=== PATIENT | female | born 1955 | race Caucasian/White ===

== ENCOUNTER → 2018-07-05 16:30 | Outpatient (CLI) | payer MEDICARE, SELFPAY ==
--- NOTE | 2018-07-05 16:31 | BI_ITS ---
MAMMOGRAPHY - BILATERAL SCREENING REASON FOR EXAM: Female, 63 years old. Routine annual screening examination. PERTINENT HISTORY: Reason for Procedure (BI) NO FAM HX NO SX TECHNIQUE: Digital bilateral breast monroe (3D mammographic acquisition) in the CC and MLO projections. 2-D mediolateral oblique (MLO) and craniocaudad (CC) views of both breasts were obtained. CAD: Full Field Digital Mammography with Computer Added Detection was performed. COMPARISON: Apr 30 2015 7:45am FINDINGS: Breast Composition: There are scattered areas of fibroglandular density. There is a cluster of microcalcification at the medial aspect of the right breast seen only on the CC view for which further evaluation by magnification views and ultrasound would be recommended. No other significant abnormalities are identified. BI/SCREENING MAMM (CAD), BILAT IMPRESSION: Further imaging evaluation recommended, as described above. (E) ASSESSMENT CATEGORY: BIRADS Category 0: Incomplete. Need additional imaging evaluation. A letter regarding these results will be sent to the patient by the facility within 30 days. Approximately 10% of breast cancers are not detected by mammography. A normal mammogram should not delay biopsy of a clinically suspicious abnormality. [id number] Electronically Signed: Renata Chen MD at 13:03 EDT Tel , Service support ,
== END ==
PROVIDERS: Family Provider Internal Medicine; PCP Internal Medicine; Referring Provider Internal Medicine; Visit Provider Internal Medicine
DX: Z12.31 Encounter for screening mammogram for malignant neoplasm of breast (principal)
CPT/HCPCS: 77063; 77067

== ENCOUNTER → 2018-07-14 08:52 | Outpatient (CLI) | payer MEDICARE, OTHER, SELFPAY ==
--- NOTE | 2018-07-14 08:54 | BI_ITS ---
MAMMOGRAPHY - UNILATERAL DIAGNOSTIC: RIGHT BREAST REASON FOR EXAM: Female, 63 years old. Abnormal right mammogram calcifications, please see prior mammogram report 07/05/2018. PERTINENT HISTORY: Non-contributory. TECHNIQUE: Digital examination. Mediolateral oblique (MLO) and craniocaudad (CC) views of the breast were obtained. CAD: CAD performed COMPARISON: 07/05/2018, 05/03/2017, 05/01/2016 and 04/30/2015. FINDINGS: Breast Composition: There are scattered areas of fibroglandular density. There are no mass densities or suspicious abnormal microcalcification cluster identified. Coarse benign-appearing calcifications are noted including likely vascular calcification which is seen on prior mammographic studies. BI/DIAG MAMM W/CAD, UNILAT IMPRESSION: Stable unilateral diagnostic right mammogram. No definite mammographic findings malignancy identified. ASSESSMENT CATEGORY: BIRADS Category 2: Benign. A letter regarding these results will be sent to the patient by the facility within 30 days. FOLLOW-UP RECOMMENDATION: Yearly follow-up mammogram recommended. (A) Negative mammographic results should not deter biopsy as a palpable lesion if present should be followed on clinical grounds and biopsy performed if clinically persistent for 3 months or increasing size. Approximately 10% of breast cancers are not detected by mammography. A normal mammogram should not delay biopsy of a clinically suspicious abnormality. Dense breast tissue mainstream neoplasm. Electronically Signed: Angel Gideon, at 16:35 EDT Tel , Service support ,
== END ==
PROVIDERS: Family Provider Internal Medicine; PCP Internal Medicine; Referring Provider Internal Medicine; Visit Provider Internal Medicine
DX: R92.8 Other abnormal and inconclusive findings on diagnostic imaging of breast (principal)
CPT/HCPCS: 77065

== ENCOUNTER 2020-10-21 07:44 | Emergency (ER) | payer OTHER, MEDICARE, SELFPAY ==
[2019-06-11 10:22] VITALS: BMI 24.3
[2020-10-21 07:45] VITALS: BP 159/77; PULSE 57; RESP 16; TEMP 36.3; O2SAT 100; BMI 26.6
--- NOTE | 2020-10-21 08:05 | CT_ITS ---
STUDY: CT BRAIN WITHOUT CONTRAST REASON FOR EXAM: Female, 65 years old. FELL ON ICE THIS AM, HIT BACK OF HEAD RADIATION DOSAGE (If Supplied By Facility): CTDIvol = ( 44.99 ) mGy, DLP = ( 779.24 ) mGycm TECHNIQUE: Transaxial CT imaging of the brain was performed without administration of intravenous contrast material. Individualized dose optimization techniques were used for this CT. COMPARISON: No relevant priors. FINDINGS: Normal soft tissue structures. Normal calvarium. Normal size ventricles and extra-axial spaces for the patient''s age. Normal white matter tracts of the cerebral hemispheres. Normal basal ganglia and thalami. Normal brainstem. Normal cerebellum. There is no intracranial hemorrhage. There are no findings of an acute ischemic infarction. Normal visualized paranasal sinuses. CT/Brain/Head without Contrast IMPRESSION: Normal unenhanced CT scan of the brain. Electronically Signed: Helio Kuhn MD at 8:51 EST , Service support ,
--- NOTE | 2020-10-21 08:06 | RAD_ITS ---
STUDY: X-RAY - RIGHT ELBOW REASON FOR EXAM: Female, 65 years old. FALL THIS AM. PAINFUL ELBOW, NO SWELLING NOTED TECHNIQUE: 3 view(s) of the elbow. COMPARISON: None. FINDINGS: Normal visualized humerus, radius and ulna. Normal radiocapitellar and ulnotrochlear articulations. The soft tissue structures are unremarkable. RAD/Elbow min 3 Views IMPRESSION: Normal x-ray examination of the elbow. Electronically Signed: Helio Kuhn MD at 8:34 EST , Service support ,
--- NOTE | 2020-10-21 09:23 | ED.VIS.FALL ---
History of Present Illness Chief Complaint: Fall Narrative: Patient presenting secondary to a fall at work. Patient slipped on the ice. Patient struck the back of her head and her right elbow. Patient is complaining of continuous pain in these areas. There is no loss of consciousness. Patient is not anticoagulated. Pain is mild. Review of systems otherwise negative. Past Medical History - Allergies and Home Meds Allergies/Adverse Reactions: Allergies No Known Allergies Allergy (Verified 10/21/20 07:46) Primary Care Physician: Lakesha Solis MD [Primary Care Provider] - Prior records reviewed: Yes Past Medical History: - - Hypothyroidism Smoking Status: Never smoker Alcohol: None Drugs: None Review of Systems All systems negative except as indicated General: Denies: Chills, Fever, Sweats Eyes: Denies: Visual changes - bilaterally, Diplopia ENT: Denies: Rhinorrhea, Sore throat Cardiovascular: Denies: Chest pain, Palpitations Respiratory: Denies: Dyspnea, Cough, Dyspnea on exertion Gastrointestinal: Denies: Abdominal pain, Nausea, Vomiting, Diarrhea, Melena, Hematochezia Genitourinary: Denies: Dysuria, Hematuria, Frequency Musculoskeletal: Reports: Extremity Pain Skin: Denies: Rash, Wounds Neurological: Reports: Headache Physical Exam Vital Signs/Narrative: Vital Signs Temp Pulse Resp BP Pulse Ox 10/21/20 07:45 97.3 F L 57 L 16 159/77 H 100 Inital Vital Signs reviewed: Yes General: Well nourished, Well developed Head: Normocephalic, Atraumatic Eyes: Perrl, EOMI ENT: TM's clear, No hemotympanum or drainage, - - Right occipital scalp hematoma no depressed skull fracture Neck: Nontender, Full ROM Cardiovascular: Regular rate, Regular rhythm, No murmurs Respiratory: No distress, CTA bilaterally, Chest nontender Abdomen: Soft, Nontender, Nondistended, Normal bowel sounds Back: Nontender Extremeties: Minimal tenderness to palpation of the right elbow normal flexion and extension pronation and supination Skin: Normal color, No rash Neurological: Alert, Oriented x3, Cranial nerves II-XII grossly intact, Normal Strength, Normal Sensation Psychological: Normal affect Diagnostic/Tx/Re-eval Clinical Impression(s) from Imaging Studies Brain CT 10/21/20 08:05 IMPRESSION: Normal unenhanced CT scan of the brain. Electronically Signed: Helio Kuhn MD at 8:51 EST , Service support , Elbow X-Ray 10/21/20 08:06 IMPRESSION: Normal x-ray examination of the elbow. Electronically Signed: Helio Kuhn MD at 8:34 EST , Service support , - Medical Decision Making Patient presented secondary to a fall. 3 view of the right elbow by my personal review as well as radiology is negative for fracture. CT imaging of the brain is negative. Patient at this point has an elbow contusion and a scalp contusion. Patient was discharged in stable condition with supportive management. ED Disposition - Plan for ED Patient: Disposition: Home or Assisted Living Diagnosis: Elbow contusion, Scalp contusion Instructions: ED Scalp Contusion Referrals: Lakesha Solis MD [Primary Care Provider] - As Needed
[2020-10-21 10:27] VITALS: PULSE 62; RESP 17; O2SAT 100
== END 2020-10-21 10:31 | disposition home or self-care (01) ==
PROVIDERS: Emergency Provider Emergency Medicine; PCP Internal Medicine
DX: S00.03XA Contusion of scalp, initial encounter (principal); S50.01XA Contusion of right elbow, initial encounter; W00.0XXA Fall on same level due to ice and snow, initial encounter; Y93.9 Activity, unspecified; Y92.9 Unspecified place or not applicable; Y99.0 Civilian activity done for income or pay; E03.9 Hypothyroidism, unspecified; Z79.899 Other long term (current) drug therapy
CPT/HCPCS: 70450; 73080; 99282

== ENCOUNTER 2020-11-04 14:56 | Emergency (ER) | payer OTHER, MEDICARE, SELFPAY ==
[2020-11-04 14:58] VITALS: BP 170/92; PULSE 67; RESP 15; TEMP 36; O2SAT 100; BMI 27.1
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
== END 2020-11-04 16:32 | disposition home or self-care (01) ==
LOC: ED 15:40
PROVIDERS: Emergency Provider Emergency Medicine; PCP Internal Medicine
DX: F07.81 Postconcussional syndrome (principal); S16.1XXA Strain of muscle, fascia and tendon at neck level, initial encounter; V47.5XXA Car driver injured in collision with fixed or stationary object in traffic accident, initial encounter; Y93.9 Activity, unspecified; Y92.9 Unspecified place or not applicable; Y99.9 Unspecified external cause status; E03.9 Hypothyroidism, unspecified; Z79.899 Other long term (current) drug therapy
CPT/HCPCS: 70450; 72125; 99282

== ENCOUNTER → 2021-07-31 16:13 | Outpatient (CLI) | payer MEDICARE, OTHER, SELFPAY ==
--- NOTE | 2021-07-31 16:16 | BI_ITS ---
MAMMOGRAPHY - BILATERAL SCREENING REASON FOR EXAM: Female, 66 years old. Routine annual screening examination. PERTINENT HISTORY: Non-contributory. TECHNIQUE: Digital bilateral breast marie (3D mammographic acquisition) in the CC and MLO projections. 2-D mediolateral oblique (MLO) and craniocaudad (CC) views of both breasts were obtained. CAD: Full Field Digital Mammography with Computer Added Detection was performed. COMPARISON: Comparison is made with prior examination dated 07/05/2015 and 04/30/2015. FINDINGS: Breast Composition: There are scattered areas of fibroglandular density. There are no dominant masses or suspicious calcifications. No other significant abnormalities are identified. There has been no significant change since the prior study. BI/SCRN MAMM (CAD)W/MARIE BILAT IMPRESSION: Stable bilateral screening mammogram. Yearly follow-up mammogram recommended. (A) ASSESSMENT CATEGORY: BIRADS Category 1: Negative. A letter regarding these results will be sent to the patient by the facility within 30 days. Approximately 10% of breast cancers are not detected by mammography. A normal mammogram should not delay biopsy of a clinically suspicious abnormality. [id number] Electronically Signed: Helio Kuhn MD at 9:47 EDT , Service support ,
== END ==
PROVIDERS: PCP Internal Medicine; Referring Provider Internal Medicine; Visit Provider Internal Medicine
DX: Z12.31 Encounter for screening mammogram for malignant neoplasm of breast (principal)
CPT/HCPCS: 77063; 77067

== ENCOUNTER → 2022-03-31 | Outpatient (CLI) | payer MEDICARE, OTHER, SELFPAY ==
[2022-03-31 17:01] LABS: Thyroid Stim Hormone (TSH) 1.25 uIU/mL (0.358-3.74)
== END | disposition home or self-care (01) ==
LOC: BIMLAB 16:12
PROVIDERS: PCP Internal Medicine; Referring Provider Internal Medicine Endocrinology, Diabetes & Metabolism; Visit Provider Internal Medicine Endocrinology, Diabetes & Metabolism
DX: E03.9 Hypothyroidism, unspecified (principal)
CPT/HCPCS: 36415; 84439; 84443

== ENCOUNTER 2022-07-12 15:07 | Emergency (ER) | payer MEDICARE, OTHER, SELFPAY ==
[2022-07-12 15:07] VITALS: BP 170/71; PULSE 63; RESP 18; TEMP 36.4; O2SAT 98; BMI 26.7
--- NOTE | 2022-07-12 15:16 | ED.VIS.BACK ---
HPI History of Present Illness Chief Complaint: Back Detail of Chief Complaint: Bilateral low back pain Informant: patient Onset/Context/Timing Onset: Month(s) Context: Gradual Onset Injury: - (No history of injury) Timing: Continuous Quality: Dull and Aching Location: Lumbar, Buttock, Right Leg and Left Leg Current Severity: Severe Maximum Severity: Severe Worsened by: improves with Movement, Ambulation, Bending and Lifting Relieved by: Nothing Associated Symptoms Associated Symptoms: - (She denies saddle paresthesia or anesthesia. She denies buckling of her knees going up or down steps. She denies foot drop.); Negative for Numbness, Tingling, Radiation to Right Leg, Radiation to Left Leg, Fever, Abdominal Pain, Dysuria, Unable to Ambulate, Unable to Transfer, Urinary Retention, Urinary Incontinence, Constipation or Fecal Incontinence Narrative Narrative: Patient is a 67-year-old woman who presents with low back pain that started a month ago. The pain is gotten worse over the past several days. She denies any bowel bladder dysfunction or saddle paresthesia or anesthesia. She had no recent surgery or dental procedure. She denies fever, chills night sweats. She states she is had a couple pound weight loss. She denies radicular pain. She denies urologic symptoms of dysuria, frequency, urgency or hematuria. She denies black or maroon-colored stool. 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 Shortness of breath Shoulder pain Thyroid disease Weight gain Home Medications pantoprazole 20 mg tablet,delayed release 20 mg PO BID 07/23/13 [History Last Taken Unknown] levothyroxine 75 mcg tablet 75 mcg PO DAILY 03/31/22 [History Last Taken Unknown] hydrocodone-acetaminophen 5-325mg 5mg-325mg 1 tab PO Q6H PRN PRN Pain 3 days #10 TABLETS 07/12/22 [Rx Last Taken Unknown] Allergy/AdvReac Type Severity Reaction Status Date / Time No Known Allergies Allergy Verified 03/31/22 15:30 Family History Other Cancer Heart disease Surgical History History of back surgery Social History (Updated 07/12/22 @ 15:[address] Christophe Franco MD) household members: none Smoking Status: Never smoker alcohol intake: never substance use type: does not use what type of physical activity do you participate in: walking frequency: daily ROS ROS ED Constitutional Constitutional ED: Reports weight loss; Denies chills, fever(s), subjective or sweats Eyes Eyes: Denies blurry vision, change in vision or diplopia ENT ENT ED: Denies ear pain, rhinorrhea or sore throat Cardiovascular Cardiovascular: Denies chest pain or palpitations Respiratory/Chest Respiratory/Chest: Denies dyspnea or dyspnea on exertion Gastrointestinal Gastrointestinal: Denies abdominal pain, constipation, diarrhea, melena, nausea or vomiting Genitourinary Genitourinary ED: Denies dysuria, hematuria or urinary frequency Musculoskeletal Musculoskeletal: Reports back pain; Denies arthralgias, myalgias or neck pain Neurologic Neurologic: Denies headache(s), paresthesias or weakness Hematologic/Lymphatic Hematologic/Lymphatic: Denies easy bleeding or easy bruising EXAM Physical Exam Const Vital Signs: 07/12/22 15:07 07/12/22 15:54 07/12/22 16:16 Temperature 97.5 F L Temperature Source Temporal Pulse Rate 63 62 60 Respiratory Rate 18 12 14 Blood Pressure 170/71 H 156/83 H 148/68 H Blood Pressure Mean 104 107 94 Pulse Ox 98 94 97 Oxygen Delivery Method Room Air Room Air Room Air Positive well nourished and well developed Constitutional Narrative: Patient appears uncomfortable. She has grimacing with movement. General Appearance ED: well developed; Negative for NAD or pallor HEENT Reports moist mucous membranes HEENT Narrative: Head is atraumatic no cephalic. Ears normal. Nares patent. Mucosa moist. Eyes PERRL and EOMs intact bilaterally General Eye ED: Negative for pale conjunctiva or scleral icterus Neck no lymphadenopathy, supple and no JVD Resp normal respiratory effort Cardio regular rate and regular rhythm GI normal to inspection, nondistended, normoactive bowel sounds, soft to palpation, non-tender, non-distended and no masses Back/Spine normal to inspection; Negative for no thoracic nor lumbar tenderness Thoracic Spine / Upper Back: paraspinal muscle tenderness Lumbar Spine / Lower Back: ROM limited and straight leg raise negative bilaterally Extremity normal to inspection and no clubbing, cyanosis or edema General Extremety ED: Negative for edema or tenderness General Extremity: Negative for edema Neuro oriented x3 and no sensory deficits noted Neuro Narrative: Normal sensation over L3-S1 dermatome. EHLs intact. 5/5 strength with plantar and dorsiflexion. Sensorium / Orientation: alert Motor Exam: strength 5/5 throughout Deep Tendon Reflexes: Rt Patellar (L4): 3+, Lt Patellar (L4): 3+, Rt Ankle (S1): 3+ and Lt Ankle (S1): 3+ Deep Tendon Reflexes Back: Rt Patellar (L4): 3+, Lt Patellar (L4): 3+, Rt Ankle (S1): 3+ and Lt Ankle (S1): 3+ Plantar Reflex: Downgoing: bilateral (There is no clonus.) Psych mental status grossly normal Skin no rashes or lesions noted and no wounds General Skin Exam: Negative for jaundice or pallor MDM MDM MDM Narrative Medical decision making narrative: Patient presents with muscular low back pain. She states she is at had x-rays of her back. Since pain has been present for 1 month and she reports weight loss will establish IV. Obtain CBC, competence metabolic panel ESR and x-ray. Differential diagnosis would be degenerative disc disease, osteomyelitis, malignancy. Suspect this is a muscular etiology. Lab Data Attestation: I reviewed the patient's lab results. Lab results narrative: CBC and differential are normal. Comprehensive metabolic panel is normal and specifically calcium. Alk phos is also normal. Labs: Laboratory Results - last 24 hr 07/12/22 07/12/22 15:37 15:37 WBC 7.5 RBC 4.38 Hgb 12.1 Hct 38.0 MCV 86.8 MCH 27.6 MCHC 31.8 L RDW Std Deviation 47.1 H RDW Coeff of Heather 14.6 Plt Count 288 MPV 10.6 Immature Gran % (Auto) 0.300 Neut % (Auto) 49.7 Lymph % (Auto) 29.7 [place] % (Auto) 13.4 H Eos % (Auto) 5.7 H Baso % (Auto) 1.2 H Absolute Neuts (auto) 3.7 Absolute Lymphs (auto) 2.23 Nucleated RBC % 0 ESR 11 Sodium 143 Potassium 3.7 Chloride 109 H Carbon Dioxide 28.0 Anion Gap 6 BUN 22 H Creatinine 1.07 H Estim Creat Clear Calc 41.05 Est GFR (MDRD) Af Amer 65 Est GFR (MDRD) Non-Af 54 L BUN/Creatinine Ratio 20.6 H Glucose 92 Calcium 9.2 Total Bilirubin 0.30 AST 12 L ALT 18 Alkaline Phosphatase 67 Total Protein 7.1 Albumin 3.6 Globulin 3.5 Albumin/Globulin Ratio 1.0 Radiography X-Ray: LS SPine (2 views were obtained. There is no lytic or blastic lesions noted. There is minimal arthritic changes. There is no evidence of spondylolisthesis or spondylolithiasis. There is calcification of the aorta. The aorta is not dilated. This was independently reviewed and interpreted by me at ) Diagnostic Testing: Clinical Impression(s) from Imaging Studies Lumbar Spine X-Ray 07/12/22 15:45 IMPRESSION: Degenerative changes of the lumbar spine. Electronically Signed: Abraham Pina DO at 16:24 EDT Reading Location ID and State: [address] [place] [address] Tel [phone], Service support , Treatment and Re-Evaluation Narrative: Patient was able to stand and ambulate. She has has a normal gait. There is no foot drop. Discharge Plan Triage Chief Complaint: Back ED Provider: Christophe Franco Dx/Rx/DC Orders Clinical Impression: Bilateral low back pain, Degenerative joint disease (DJD) of lumbar spine, Elevated blood pressure reading Instructions: ED Degenerative Disk Disease Prescriptions: New hydrocodone-acetaminophen [hydrocodone-acetaminophen] 5-325 mg tablet 1 tab PO Q6H PRN PRN (Reason: Pain) 3 Days Qty: 10 0RF No Action pantoprazole 20 MG tablet 20 mg PO BID levothyroxine 75 mcg tablet 75 mcg PO DAILY Rx Instructions: M,W,F Take a half of pill on T,T,S,S take a whole pill Primary Care Provider: Lakesha Solis Referrals: Lakesha Solis MD [Primary Care Provider] - 3-5 Days Disposition Disposition: Home, Self Care
[2022-07-12] MEDS: Ondansetron 4 MG/2 ML Vial IV (15:25)
[2022-07-12] MEDS: Ketorolac 15 MG/ML Vial IV (15:25)
[2022-07-12] MEDS: Morphine 4 MG/ML Syringe 6 MG IV (15:25)
[2022-07-12 15:45] LABS: Absolute Lymphocyte Count 2.23 X10^3/uL (0.83-4.51); Absolute Neutrophil Count 3.7 X10^3/uL (2.0-7.7); Basophil# 0.09 X10^3/uL; Basophil% 1.2 % (0-1); Eosinophil# 0.43 X10^3/uL; Eosinophils% 5.7 % (0-5); Hemoglobin 12.1 g/dL (12.0-15.0); Lymphocyte # 2.23 X10^3/ul (0.83-4.51); Lymphocyte % 29.7 % (19-41); Mean Corp Hgb Conc 31.8 g/dL (32-36); Mean Corpuscular Hgb 27.6 pg (27.0-32.0); Mean Corpuscular Volume 86.8 fL (81-99); Mean Platelet Vol. 10.6 fl (6.2-12.0); Monocyte# 1.01 X10^3/uL; Monocyte% 13.4 % (0-10); NRBC Flagged by Analyzer 0 % (0-5); Neutrophil # 3.74 X10^3/uL (2.7-7.7); Neutrophil % 49.7 % (47-70); Platelet Count 288 K/mm3 (150-450); RBC Distribution Width CV 14.6 % (11.6-14.6); RBC Distribution Width SD 47.1 fl (35.1-43.9); Red Blood Count 4.38 M/mm3 (4.2-5.4); White Blood Count 7.5 K/mm3 (4.4-11.0)
--- NOTE | 2022-07-12 15:45 | RAD_ITS ---
STUDY: X-RAY - LUMBAR SPINE REASON FOR EXAM: Female, 67 years old. Chronic lower back pain increasing in intensity. TECHNIQUE: 2 view(s) of the lumbar spine were obtained. COMPARISON: None FINDINGS: Normal lumbar lordosis. There is no substantial scoliosis. Minimal retrolisthesis of L2 on L3. The alignment is otherwise preserved. There is generalized demineralization of the vertebral bodies. There is multi-level degenerative disc disease with multi-level disc space narrowing. There is no evidence of acute fracture or loss of vertebral axial height. Diffuse facet degenerative change. There is atherosclerotic calcification of the abdominal aorta without a demonstrated aneurysm. RAD/Lumbar Spine 2 or 3 Views IMPRESSION: Degenerative changes of the lumbar spine. Electronically Signed: Abraham Pina DO at 16:24 EDT ,
[2022-07-12 15:54] VITALS: BP 156/83; PULSE 62; RESP 12; O2SAT 94
[2022-07-12 16:02] LABS: AST(SGOT) 12 U/L (15-37); Alanine Aminotransfer ALT/SGPT 18 U/L (13-56); Albumin, Serum 3.6 g/dL (3.2-5.0); Alkaline Phosphatase 67 U/L (45-117); Anion Gap 6 (5-15); BUN 22 mg/dL (7-18); BUN/Creat Ratio 20.6 RATIO (10-20); Calcium,Total 9.2 mg/dL (8.5-10.1); Chloride 109 mmol/L (98-107); Creatinine, Serum 1.07 mg/dL (0.55-1.02); EST Glomerular Filtration Rate 54 mL/min (>60); Est Glom Filt Rate - Afr Amer 65 mL/min (>60); Estimated Creatinine Clearance 41.05 ml/min; Globulin 3.5 g/dL (2.2-4.2); Glucose 92 mg/dL (74-106); Potassium 3.7 mmol/L (3.5-5.1); Protein, Total 7.1 g/dL (6.4-8.2); Sodium Level 143 mmol/L (136-145)
[2022-07-12 16:16] VITALS: BP 148/68; PULSE 60; RESP 14; O2SAT 97
[2022-07-12 16:17] LABS: Erythrocyte Sedimentation Rate 11 mm/hr (0-30)
== END 2022-07-12 16:41 | disposition home or self-care (01) ==
PROVIDERS: Emergency Provider Emergency Medicine; PCP Internal Medicine; Visit Provider Emergency Medicine
DX: M54.50 Low back pain, unspecified (principal); M47.816 Spondylosis without myelopathy or radiculopathy, lumbar region; E06.3 Autoimmune thyroiditis; R03.0 Elevated blood-pressure reading, without diagnosis of hypertension; Z79.890 Hormone replacement therapy; Z79.899 Other long term (current) drug therapy
CPT/HCPCS: 72100; 80053; 85025; 85652; 96374; 96375; 99283; J7030; J7050; A4216; J2405

== ENCOUNTER → 2023-03-25 | Outpatient (CLI) | payer MEDICARE, OTHER, SELFPAY ==
[2023-03-25 16:25] LABS: T4 Free Direct 1.26 ng/dL (0.76-1.46); Thyroid Stim Hormone (TSH) 1.39 uIU/mL (0.358-3.74)
== END | disposition home or self-care (01) ==
PROVIDERS: PCP Internal Medicine; Referring Provider Internal Medicine Endocrinology, Diabetes & Metabolism; Visit Provider Internal Medicine Endocrinology, Diabetes & Metabolism
DX: E03.8 Other specified hypothyroidism (principal); E06.3 Autoimmune thyroiditis
CPT/HCPCS: 36415; 84439; 84443

== ENCOUNTER 2023-07-24 14:13 | Inpatient (IN) | payer MEDICARE, OTHER, SELFPAY ==
[2023-07-24] VITALS (13 sets, daily range): BP systolic 105–199; BP diastolic 61–104; PULSE 58–114; RESP 12–24; TEMP 36.4–36.8; O2SAT 95–100; BMI 24.4
--- NOTE | 2023-07-24 14:30 | EKG12_ITS ---
Test Reason : CHEST PAIN Blood Pressure : / mmHG Vent. Rate : 090 BPM Atrial Rate : 090 BPM P-R Int : 136 ms QRS Dur : 086 ms QT Int : 368 ms P-R-T Axes : 064 055 032 degrees QTc Int : 450 ms Critical Test Result: STEMI Normal sinus rhythm ST elevation consider anterior injury or acute infarct ACUTE OR / STEMI Abnormal ECG Confirmed by MAIRA ALVAREZ, SU ([id number]), editor department JOSEY ROMAN ([id number]) on 07/27/2023 12:38:27 PM Referred By: Ann Bravo Confirmed By:DESEAN BRAVO MD
--- NOTE | 2023-07-24 14:31 | ED.RN ---
pt had x4 81mg asa. and 5000unit hep.
--- NOTE | 2023-07-24 14:33 | ED.VIS.CHEST ---
HPI History of Present Illness Chief Complaint: Abd Pain Detail of Chief Complaint: Epigastric abdominal pain Informant: patient Onset/Context/Timing Onset: Today, Yesterday and Days Activity at onset: gradual Timing: Continuous (Intermittent for several days. Constant for last 3 to 4 hours.) and Intermittent Quality: Positive for Pressure Location: - (Epigastric.) Current Severity: Moderate Maximum Severity: Moderate Worsened By: Nothing Relieved By: Nothing Associated Symptoms: Positive for Dyspnea Narrative Narrative: 68-year-old female no significant past cardiac history. History of hypothyroidism and reflux. She has never had a heart catheterization or stress test. States the last several days she has had epigastric abdominal pain has been intermittent. Not specifically associated with exertion. About 3 to 4 hours ago the pain started and has been constant and more intense. She says her left arm just feels funny. 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 Shortness of breath Shoulder pain Thyroid disease Weight gain Home Medications pantoprazole 20 mg tablet,delayed release 40 mg PO BID GERD 07/23/13 [History Last Taken 07/23/23] levothyroxine 75 mcg tablet 75 mcg PO DAILY THYROID 03/31/22 [History Last Taken 07/24/23] Allergy/AdvReac Type Severity Reaction Status Date / Time No Known Allergies Allergy Verified 07/24/23 14:15 Family History Other Cancer Heart disease Surgical History History of back surgery Social History household members: none Smoking Status: Never smoker alcohol intake: never substance use type: does not use what type of physical activity do you participate in: walking frequency: daily ROS ROS ED ROS Narrative Epigastric pain. Shortness of breath. Review of Systems ROS Unobtainable: Denies due to encephalopathy Constitutional Constitutional ED: Denies chills or fever(s) Eyes Eyes: Reports none ENT ENT ED: Denies ear pain Cardiovascular Cardiovascular: Reports as per HPI and other Details: Epigastric abdominal pain Respiratory/Chest Respiratory/Chest: Denies cough or dyspnea Gastrointestinal Gastrointestinal: Reports abdominal pain; Denies constipation, diarrhea, melena, nausea or vomiting Genitourinary Genitourinary ED: Denies dysuria or hematuria Musculoskeletal Musculoskeletal: Denies arthralgias or back pain Integumentary Denies abscess or Abrasions Neurologic Neurologic: Denies headache(s) Psychiatric Psychiatric: Denies anxiety or depression Endocrine Endocrinology: Denies cold intolerance Hematologic/Lymphatic Hematologic/Lymphatic: Denies easy bleeding or easy bruising Allergic/Immunologic Allergic/Immunologic ED: Denies mouth swelling or tongue swelling EXAM Physical Exam Narrative Exam Narrative: 68-year-old female. Vital signs stable. Afebrile. Pulse ox 100% on room air no signs hypoxia. HEENT exam unremarkable. Neck nontender no JVD. No lymphadenopathy. Lungs clear to auscultation bilaterally. Heart regular rhythm rate about 90 no murmur. Chest wall nontender. Abdomen soft nondistended normal bowel sounds no peritoneal signs. She complains of epigastric tenderness but there is no reproducible epigastric pain or right upper quadrant abdominal pain. Abdomen is nondistended normal bowel sounds no peritoneal signs. No pulsatile mass. Moving all 4 extremities. Equal symmetrical metal burnisher strength. Equal symmetrical radial pulses. Dorsi plantarflexion intact. Calves nontender that edema. Neurologically she is awake and alert. Const Vital Signs: 07/24/23 14:13 07/24/23 14:13 07/24/23 14:13 Temperature 97.8 F Temperature Source Temporal Pulse Rate 92 97 Respiratory Rate 16 24 H Respiratory Effort Normal Blood Pressure 199/104 H 181/93 H Blood Pressure Mean 135 122 Pulse Ox 100 100 Oxygen Delivery Method Room Air Room Air 07/24/23 14:24 07/24/23 14:33 Temperature Temperature Source Pulse Rate Respiratory Rate Respiratory Effort Blood Pressure 171/94 H Blood Pressure Mean Pulse Ox Oxygen Delivery Method Room Air Positive well nourished and well developed; Negative for obese, cachectic, contractures or unkempt General Appearance ED: well developed; Negative for unkempt, cachectic, contractures, NAD or pallor Nutritional Appearance: Negative for cachectic or obese HEENT Reports moist mucous membranes normocephalic and atraumatic; Negative for trauma or tenderness Eyes EOMs intact bilaterally General Eye ED: Negative for pale conjunctiva, scleral icterus or other Neck no lymphadenopathy, supple and no JVD General: Negative for tenderness Chest Wall inspection of chest normal and palpation of chest normal Chest: Negative for tenderness Resp normal respiratory effort and clear to auscultation bilaterally Effort and Inspection: Negative for respiratory distress Auscultation: Negative for rales, rhonchi or wheezes Cardio regular rate, S1 normal heart sound, S2 normal heart sound and no murmurs Rate: Negative for bradycardia or tachycardic Rhythm: Negative for abnormal rhythm Peripheral Pulses: pulses 2+ throughout GI normal to inspection, nondistended, normoactive bowel sounds, soft to palpation, non-tender, non-distended and no masses Auscultation: Negative for hyperactive bowel sounds Palpation: Negative for splenomegaly, mass or other Back/Spine no CVA tenderness and no thoracic nor lumbar tenderness General Back: Negative for CVA tenderness Cervical Spine: Negative for cervical spine tenderness Extremity normal to inspection General Extremety ED: Negative for edema, pulses abnormal or tenderness General Extremity: Negative for edema or pulses abnormal Neuro oriented x3 and CN's II-XII intact bilaterally Sensorium / Orientation: awake, alert, oriented to person, oriented to place and oriented to time; Negative for confused, lethargic or stuporous Motor Exam: strength 5/5 throughout Psych mental status grossly normal Appearance: Negative for unkempt Attitude: No agitated Mood & Affect: Negative for depressed or anxious Skin no rashes or lesions noted and no wounds General Skin Exam: Negative for jaundice or pallor Rashes: No rashes noted Trauma: Negative for abrasion or laceration Heart Score History: Highly Suspicious Age: >/= 65 years Risk Factors: 1 or 2 Risk Factors Score: 5 MDM MDM MDM Narrative Medical decision making narrative: 68-year-old with atypical epigastric abdominal pain that presented about 3 days ago but was intermittent and now is constant today over the last 3 to 4 hours. EKG is very concerning for an anterior NE with ST elevation in leads V2 through V6. Really no significant reciprocal changes. No old EKG available for comparison. I have already spoken interventional cardiology on-call. Patient will get a heparin bolus and drip. Baby aspirin. Oral nitroglycerin. Patient was made a STEMI team after the initial EKG. I spoke to cardiology on-call. The Content Architect team is being assembled. History & Record Review Discussion w/independent historian: Patient Additional record(s) reviewed:: Prior inpatient record, Prior outpatient record, Prior ED visit, Prior labs and No prior records Lab Data Attestation: I reviewed the patient's lab results. Lab results narrative: CBC shows a white count of 9. H&H of 13 and 43. Platelets 332. PT/INR 12.3 and 0.9. PTT 31. Electrolytes shows A 7 normal BUN and creatinine of 17 and 1. Initial troponin is elevated at 98. Labs: Laboratory Results - last 24 hr 07/24/23 14:20 WBC 9.4 RBC 4.95 Hgb 13.6 Hct 43.2 MCV 87.3 MCH 27.5 MCHC 31.5 L RDW Std Deviation 47.1 H RDW Coeff of Heather 14.7 H Plt Count 332 MPV 10.6 Immature Gran % (Auto) 0.100 Neut % (Auto) 37.1 L Lymph % (Auto) 45.9 H [place] % (Auto) 11.0 H Eos % (Auto) 4.8 Baso % (Auto) 1.1 H Absolute Neuts (auto) 3.5 Absolute Lymphs (auto) 4.33 Nucleated RBC % 0 PT 12.3 INR 0.9 APTT 31.5 Sodium 141 Potassium 3.7 Chloride 106 Carbon Dioxide 28.0 Anion Gap 7 BUN 17 Creatinine 1.09 H Estim Creat Clear Calc 39.73 Est GFR (MDRD) Af Amer 64 Est GFR (MDRD) Non-Af 53 L BUN/Creatinine Ratio 15.6 Glucose 103 Calcium 9.5 Troponin I High Sens 98 H Radiography Chest X-Ray - ED: 1 View, Read by ED Physician, Heart, Lungs, Mediastinum, Bony Structures, No Acute Disease and Chronic Changes Diagnostic Testing: Chest x-ray, portable, single view shows no acute abnormality. Chronic changes. Normal cardiac silhouette. Normal mediastinum. Rhythm Strip Rhythm Strip: Sinus Rhythm Rate: 90 Ectopy: None EKG Initial EKG: Attestation: I personally reviewed and interpreted this EKG as follows: Interpretation: Sinus Rhythm and S-T Elevation Comments: Normal sinus rhythm. Rate and 90. ST elevation in leads V2 through V6 consistent with an anterior NE. No prior EKG available. Prior EKG tracings: not available for review Prior: No Prior Critical Care Time Critical Care Time: Yes Critical care time (excluding procedures): 30-74 minutes, Including time spent:, Discussing w/Patient &/or Family/Engine Room Operator, Discussing w/Consultants, Arranging Admission or Transfer, Performing Direct Patient Care at Bedside and - (35 min) Discharge Plan Dx/Rx/DC Orders Clinical Impression: Acute NE Disposition Disposition: Acute Care Hospital [facility]
[2023-07-24] MEDS: Aspirin 81 MG TAB.CHEW 324 MG PO (14:36)
[2023-07-24 14:39] LABS: Absolute Lymphocyte Count 4.33 X10^3/uL (0.83-4.51); Absolute Neutrophil Count 3.5 X10^3/uL (2.0-7.7); Basophil% 1.1 % (0-1); Eosinophil# 0.45 X10^3/uL; Eosinophils% 4.8 % (0-5); Hematocrit 43.2 % (37-47); Hemoglobin 13.6 g/dL (12.0-15.0); Lymphocyte # 4.33 X10^3/ul (0.83-4.51); Lymphocyte % 45.9 % (19-41); Mean Corp Hgb Conc 31.5 g/dL (32-36); Mean Corpuscular Hgb 27.5 pg (27.0-32.0); Mean Corpuscular Volume 87.3 fL (81-99); Mean Platelet Vol. 10.6 fl (6.2-12.0); Monocyte# 1.04 X10^3/uL; NRBC Flagged by Analyzer 0 % (0-5); Neutrophil % 37.1 % (47-70); Platelet Count 332 K/mm3 (150-450); RBC Distribution Width CV 14.7 % (11.6-14.6); RBC Distribution Width SD 47.1 fl (35.1-43.9); Red Blood Count 4.95 M/mm3 (4.2-5.4); White Blood Count 9.4 K/mm3 (4.4-11.0)
[2023-07-24] MEDS: Heparin Injection (Vial) 5,000 UNIT/ML VIAL 4500 UNIT IV (14:44)
[2023-07-24] MEDS: LORazepam 2 MG/ML Syringe 1 MG IV (14:46)
[2023-07-24 14:49] LABS: International Normalized Ratio 0.9; Partial Thromboplast Time 31.5 Seconds (24.1-36.2); Prothrombin Time (Protime)PT. 12.3 SECONDS (11.7-14.9)
[2023-07-24] MEDS: HEPARIN/D5w 25,000 UNITS 25,000 UNITS/250 ML IV.SOLN. 10 UNITS CONT INF (14:52)
--- NOTE | 2023-07-24 14:55 | RAD_ITS ---
STUDY: X-RAY CHEST REASON FOR EXAM: Female, 68 years old. cp TECHNIQUE: Single AP portable view of the chest. COMPARISON: None. FINDINGS: The lungs are clear and expanded. Slightly elevated right hemidiaphragm. Normal size heart. Normal mediastinum and kamari. Normal visualized pulmonary arteries. Normal visualized aortic arch and descending thoracic aorta. Normal visualized thoracic spine. Normal visualized ribs, clavicles, and shoulders. There is no demonstrated abnormality of the visualized soft tissue structures of the upper abdomen. RAD/Chest 1 View (Portable) IMPRESSION: Normal x-ray examination of the chest. Electronically Signed: Pasquale Vásquez MD at 15:05 EDT ,
[2023-07-24 14:56] LABS: Anion Gap 7 (5-15); BUN 17 mg/dL (7-18); BUN/Creat Ratio 15.6 RATIO (10-20); Calcium,Total 9.5 mg/dL (8.5-10.1); Chloride 106 mmol/L (98-107); Creatinine, Serum 1.09 mg/dL (0.55-1.02); EST Glomerular Filtration Rate 53 mL/min (>60); Est Glom Filt Rate - Afr Amer 64 mL/min (>60); Estimated Creatinine Clearance 39.73 ml/min; Glucose 103 mg/dL (74-106); Potassium 3.7 mmol/L (3.5-5.1); Sodium Level 141 mmol/L (136-145); Troponin-I HS 98 pg/mL (3.0-54.0)
--- NOTE | 2023-07-24 15:02 | HP.PCM.HOS_ITS ---
HPI - General General Date of Admission: 07/24/23 Date of Service: 07/24/23 Chief Complaint: Epigastric pain, nausea. HPI Narrative The patient is a 68 y/o F w/ PMHx: GERD, CKD stage III unclear subtype, Hypothyroidism with history of Jennifer's thyroiditis, Chronic neck/back pain otherwise no marked medical history who presents to the [facility] ED on 07/24/23 with history of onset over the last 72 hours epigastric discomfort described as a p ressure and an aching rated moderate in severity 4-5 out of 10 and constant with dyspnea associated but no diaphoresis nor emesis not necessarily worse with increase of activity however just prior to ED evaluation for approximately 3 to 4 hours she noted he became more severe rated 8-10 out of 10 in severity with associated left upper extremity paresthesias prompting eventual ED evaluation. ED included T9 seven-point, heart rate 92, BP 199/104, respiratory rate 16, 100% room air with most recent vital signs with BP 171/94, CBC with WC 9.4, hemoglobin 13.6, platelet 332 without marked shift, unremarkable coags, BMP with BUN/creatinine 17/1.09, initial troponin 98, EKG with evidence of anterior STEMI, chest x-ray with no acute cardiopulmonary findings, pending hepatic profile and lipase level upon evaluation. Given EKG finding STEMI call initiated. In the ED patient ministered full-strength aspirin therapy and heparin bolus. [facility] Medical History (Updated 07/24/23 @ 15:[address] 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 Home Medications pantoprazole 20 mg tablet,delayed release 40 mg PO BID GERD 07/23/13 [History Last Taken 07/23/23] levothyroxine 75 mcg tablet 75 mcg PO DAILY THYROID 03/31/22 [History Last Taken 07/24/23] Allergy/AdvReac Type Severity Reaction Status Date / Time No Known Allergies Allergy Verified 07/24/23 14:15 Family History Mother Cancer Uterine CA Father Heart disease Hypertension CAD (coronary artery disease) Myocardial infarction Sudden cardiac Surgical History History of back surgery Social History household members: none Smoking Status: Never smoker alcohol intake: never substance use type: does not use what type of physical activity do you participate in: walking frequency: daily ROS ROS Narrative Admission Review of Systems: CONSTITUTIONAL: No weight loss, fever, chills, + weakness or fatigue. HEENT: Eyes: No visual loss, blurred vision, double vision or yellow sclerae. Ears, Nose, Throat: No hearing loss, sneezing, congestion, runny nose or sore throat. SKIN: No rash or itching, lesions, wounds. CARDIOVASCULAR: + chest pain, chest pressure or chest discomfort. No palpitations, edema, orthopnea, syncopal events. RESPIRATORY: + shortness of breath. No cough or sputum, wheezing, hemoptysis. GASTROINTESTINAL: + anorexia, nausea, epigastric discomfort. No vomiting, diarrhea, melena, BRBPR. GENITOURINARY: No dysuria, frequency, urgency or retention. NEUROLOGICAL: No headache, dizziness, syncope, paralysis, ataxia, numbness or tingling in the extremities, focal weakness, change in bowel or bladder control, seizure. MUSCULOSKELETAL: + muscle, back pain, joint pain or stiffness. HEMATOLOGIC: No anemia, bleeding or bruising. LYMPHATICS: No enlarged nodes. No history of splenectomy. PSYCHIATRIC: No history of depression or anxiety. ENDOCRINOLOGIC: No reports of sweating, cold or heat intolerance. No polyuria or polydipsia. ALLERGIES: No history of asthma, hives, eczema or rhinitis. Vital Signs Vital Signs Vital Signs: 07/24/23 14:13 07/24/23 14:13 07/24/23 14:13 Temperature 97.8 F Temperature Source Temporal Pulse Rate 92 97 Respiratory Rate 16 24 H Respiratory Effort Normal Blood Pressure 199/104 H 181/93 H Blood Pressure Mean 135 122 Pulse Ox 100 100 Oxygen Delivery Method Room Air Room Air 07/24/23 14:24 07/24/23 14:33 Temperature Temperature Source Pulse Rate Respiratory Rate Respiratory Effort Blood Pressure 171/94 H Blood Pressure Mean Pulse Ox Oxygen Delivery Method Room Air Weight Weight: 138 lb Body Mass Index (BMI) 24.4 Physical Exam Narrative Physical Examination: General: Awake, alert, oriented x 3 and cooperative, seated upright in the ED bed, ongoing complaint of epigastric discomfort, improved since initial arrival. Skin: Normal color, normal turgor, no icterus, no cyanosis. HEENT: AT/NC, EOMI, PERRLA, mildly dry MM, no carotid bruits or JVD noted. Lungs: CTA bilaterally, moderate effort, mild decrease BL bases, no rales, ronchi or wheezing. Heart: Regular rate and rhythm; no gallop, rub audible. Abdomen: Soft, no reproducible discomfort with palpation even in the epigastric region, no rebound or guarding,, ND, mildly hyperactive BS, no HSM. Extremities: No cyanosis, clubbing, or edema. Neurological: Patient awake, alert, oriented as noted, cognitive function intact; pupils equally reactive to light and accommodation, cranial nerves II- XII grossly normal, moving all 4 extremities, no focal deficits, strength s everely globally decreased secondary to acute presentation with STEMI. Psychiatric: Affect appears fatigued, uncomfortable, no acute evidence of depressive or anxiety feelings. Results Lab / Micro Data 07/24/23 14:20 07/24/23 14:20 Labs: Laboratory Results - last 24 hr 07/24/23 14:20: WBC 9.4, RBC 4.95, Hgb 13.6, Hct 43.2, MCV 87.3, MCH 27.5, MCHC 31.5 L, RDW Std Deviation 47.1 H, RDW Coeff of Heather 14.7 H, Plt Count 332, MPV 10.6, Immature Gran % (Auto) 0.100, Neut % (Auto) 37.1 L, Lymph % (Auto) 45.9 H, [place] % (Auto) 11.0 H, Eos % (Auto) 4.8, Baso % (Auto) 1.1 H, Absolute Neuts (auto) 3.5, Absolute Lymphs (auto) 4.33, Nucleated RBC % 0, PT 12.3, INR 0.9, APTT 31.5, Sodium 141, Potassium 3.7, Chloride 106, Carbon Dioxide 28.0, Anion Gap 7, BUN 17, Creatinine 1.09 H, Estim Creat Clear Calc 39.73, Est GFR (MDRD) Af Amer 64, Est GFR (MDRD) Non-Af 53 L, BUN/Creatinine Ratio 15.6, Glucose 103, Calcium 9.5, Troponin I High Sens 98 H Rhythm Strip Rhythm Strip: Sinus Rhythm Rate: 90 Ectopy: None Assessment & Plan Assessment/Plan (1) STEMI (ST elevation myocardial infarction): PLAN: Plan The patient is a 68 y/o F w/ PMHx: GERD, CKD stage III unclear subtype, Hypothyroidism with history of Jennifer's thyroiditis, Chronic neck/back pain otherwise no marked medical history who presents to the [facility] ED on 07/24/23 with history of onset over the last 72 hours epigastric discomfort described as a pressure and an aching eventually worsening prompting eventual ED evaluation. #1. Epigastric pain/chest pain secondary to Acute Anterior STEMI: EKG in ED w/ anterior STEMI evident, CXR w/ no acute cardiopulmonary findings. Trop elevated, 98. Currently transitioning to the cardiac catheterization lab for intervention evaluation, following this will transition to the ICU, will maintain on a monitored bed, continue serial cardiac enzymes and EKGs. Obtain magnesium level upon admission. Continue medical management w/ initiation of asa, low-dose Coreg, low-dose lisinopril, high-dose statin. We will obtain AM FLP. ECHO requested. Cardiology consulted and following. ASA, NG, morphine. #2. Elevated BP without hypertensive diagnosis: Patient with significantly elevated BP upon presentation in the setting of #1, initiating on low-dose lisinopril and low-dose Coreg per discussion with cardiology, also as needed IV hydralazine in interim. #3. Chronic Kidney Disease Stage III unclear subtype per review of GFR levels: Admission BUN/Cr 17/1.09, baseline renal function 1.0-1.2, repeat BMP in AM. #4. Hypothyroidism: Patient with history of Jennifer thyroiditis status post treatment, will continue patient home levothyroxine regimen. #5. Chronic neck/back pain: Encourage frequent positional changes, as needed Tylenol as needed. #6. GERD: We will continue patient on PPI. #7. DVT prophylaxis: Administered heparin bolus in ED, transition to chemoprophylactic dosing of Lovenox in AM. #8. CODE status: Patient HCPOA and living will is not in place. Patient notes her daughter who is present she would want to be her decision maker medically if she was unable. Discussed CODE status at length including difference between FULL code, DNR-CCA and DNR-CC status. Following discussions about the differences in these status, requested Full Code status. Advanced Care Planning Face to Face Time: 16 minutes. Charges/Coding Visit Charges Inpatient E&M: 76676 Init Hosp L3 Procedures Hospitalists Procedures: [id number] Advncd Care Plan 30 Min
[2023-07-24 15:34] LABS: AST(SGOT) 18 U/L (15-37); Alanine Aminotransfer ALT/SGPT 19 U/L (13-56); Alkaline Phosphatase 78 U/L (45-117); Bilirubin, Direct 0.11 mg/dL (0.00-0.30); Lipase 25 U/L (13-75)
[2023-07-24 15:35] LABS: Magnesium 2.5 mg/dL (1.6-2.6)
--- NOTE | 2023-07-24 15:49 | CON.PCM.CA_ITS ---
Assessment & Plan Assessment/Plan (1) STEMI (ST elevation myocardial infarction): QUALIFIERS: Involved coronary artery: LAD coronary artery Qualified Code(s): I21.02 - ST elevation (STEMI) myocardial infarction involving left anterior descending coronary artery PLAN: Treated with drug-eluting stent to LAD. We will keep the patient on aspirin, Brilinta, statin, beta-kyaw and KAI inhibitor. We will check a 2D echo. Patient is being admitted to the CCU for further management. HPI Consult Data Date of Consult: 07/24/23 HPI Narrative Reason for Consultation: stemi HPI Narrative: RAY BURGOS, is a 68 F who presents with STEMI and was found to have anterior ST elevation AZ. STEMI alert was called. Patient was evaluated and underwent emergent coronary angiography which revealed 99% stenosis in the mid LAD that was treated with drug-eluting stent. Patient is being admitted to the CCU for further management of her ST elevation AZ. Review of systems: All systems reviewed. All system negative except as addressed. [facility] Medical History (Updated 07/24/23 @ 15:[address] 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 Home Medications pantoprazole 20 mg tablet,delayed release 40 mg PO BID GERD 07/23/13 [History Last Taken 07/23/23] levothyroxine 75 mcg tablet 75 mcg PO DAILY THYROID 03/31/22 [History Last Taken 07/24/23] Allergy/AdvReac Type Severity Reaction Status Date / Time No Known Allergies Allergy Verified 07/24/23 14:15 Family History Mother Cancer Uterine CA Father Heart disease Hypertension CAD (coronary artery disease) Myocardial infarction Sudden cardiac Surgical History History of back surgery Social History household members: none Smoking Status: Never smoker alcohol intake: never substance use type: does not use what type of physical activity do you participate in: walking frequency: daily Physical Exam Const alert and oriented x3 HEENT normocephalic Eyes no scleral icterus Resp normal respiratory effort Psych mental status grossly normal Risk Stratification Risk Stratification Applicable: No Charges/Coding Visit Charges Inpatient E&M: 96274 Init Hosp L2 Objective Data Vital Signs: Vital Signs Temp Pulse Resp BP Pulse Ox O2 Del Method 97.6 F L 64 20 H 154/78 H 100 Room Air 07/24/23 15:18 07/24/23 15:18 07/24/23 15:18 07/24/23 15:18 07/24/23 15:18 07/24/23 14:33 Oxygen Delivery Method Room Air Weight: 138 lb Body Mass Index (BMI) 24.4 Lab / Micro Data 07/24/23 14:20 07/24/23 14:20 Labs: Laboratory Results - last 24 hr 07/24/23 14:20: WBC 9.4, RBC 4.95, Hgb 13.6, Hct 43.2, MCV 87.3, MCH 27.5, MCHC 31.5 L, RDW Std Deviation 47.1 H, RDW Coeff of Heather 14.7 H, Plt Count 332, MPV 10 .6, Immature Gran % (Auto) 0.100, Neut % (Auto) 37.1 L, Lymph % (Auto) 45.9 H, Hunt % (Auto) 11.0 H, Eos % (Auto) 4.8, Baso % (Auto) 1.1 H, Absolute Neuts (auto) 3.5, Absolute Lymphs (auto) 4.33, Nucleated RBC % 0, PT 12.3, INR 0.9, APTT 31.5, Sodium 141, Potassium 3.7, Chloride 106, Carbon Dioxide 28.0, Anion Gap 7, BUN 17, Creatinine 1.09 H, Estim Creat Clear Calc 39.73, Est GFR (MDRD) Af Amer 64, Est GFR (MDRD) Non-Af 53 L, BUN/Creatinine Ratio 15.6, Glucose 103, Calcium 9.5, Magnesium 2.5, Total Bilirubin 0.40, Direct Bilirubin 0.11, AST 18, ALT 19, Alkaline Phosphatase 78, Troponin I High Sens 98 H, Total Protein 8.0, Albumin 4.0, Globulin 4.0, Lipase 25 Rhythm Strip Rhythm Strip: Sinus Rhythm Rate: 90 Ectopy: None Cardiology Labs/Tests 07/24/23 14:20: WBC 9.4, RBC 4.95, Hgb 13.6, Hct 43.2, MCV 87.3, MCH 27.5, MCHC 31.5 L, Plt Count 332, MPV 10.6, Immature Gran % (Auto) 0.100, Neut % (Auto) 37.1 L, Lymph % (Auto) 45.9 H, Hunt % (Auto) 11.0 H, Eos % (Auto) 4.8, Baso % (Auto) 1.1 H, Absolute Neuts (auto) 3.5, Nucleated RBC % 0, PT 12.3, INR 0.9, APTT 31.5, Sodium 141, Potassium 3.7, Chloride 106, Carbon Dioxide 28.0, Anion Gap 7, BUN 17, Creatinine 1.09 H, Est GFR (MDRD) Af Amer 64, Est GFR (MDRD) Non- Af 53 L, BUN/Creatinine Ratio 15.6, Glucose 103, Calcium 9.5, Magnesium 2.5, Tot al Bilirubin 0.40, Direct Bilirubin 0.11 Rhythm: EKG: ECHO: Stress Test: Cardiac Cath: PCI: CT Surgery: Holter monitor: EPS: PPM: CXR: Chest CT Scan: Radiography Diagnostic Testing: Radiology Impression Chest X-Ray 07/24/23 14:55 IMPRESSION: Normal x-ray examination of the chest. Electronically Signed: Pasquale Vásquez MD at 15:05 EDT ,
--- NOTE | 2023-07-24 15:54 | ECHOCS_ITS ---
Reason For Study: CAD/ASHD Procedure This was a 2D Doppler, Color Flow transthoracic echocardiogram. Exam performed portable in ICU/CCU. Left Ventricle Normal size and thickness. Cannot exclude LV apical thrombus. The left ventricular ejection fraction is 40 %. Apical akinesis. Normal diastology for age. Right Ventricle Normal right ventricle. Atria The left and right atria are normal. Mitral Valve No mitral valve insufficiency. Tricuspid Valve Trivial tricuspid valve insufficiency. Normal pulmonary artery pressure. Aortic Valve Trisinus/trileaflet aortic valve. Pulmonic Valve The pulmonic valve is not well visualized. Trivial pulmonic valve insufficiency. Great Vessels Normal sized aortic root. Pericardium/Pleural No pericardial effusion. Medication Diluted definity 2ml given slow IV push to enhance endocardial definition. MMode/2D Measurements & Calculations LVIDd: 5.0 cm IVSd: 0.85 cm Ao root diam: 2.6 cm LVIDs: 2.8 cm LVPWd: 0.80 cm RVDd: 3.0 cm FS: 44.5 % LAV(MOD-bp): 40.6 ml LVAd ap4: 25.3 cm2 SV(MOD-sp4): 30.2 ml LAV(MOD-bp) Indexed: 24.6 ml/m2 LVLd ap4: 7.3 cm LAV(MOD-sp2): 45.5 ml EDV(MOD-sp4): 73.0 ml LAV(MOD-sp4): 35.4 ml EDV(sp4-el): 74.4 ml LVAs ap4: 18.2 cm2 LVLs ap4: 6.4 cm ESV(MOD-sp4): 42.9 ml ESV(sp4-el): 44.2 ml EF(MOD-sp4): 41.3 % EF(sp4-el): 40.6 % SV(sp4-el): 30.2 ml LA A4 area: 14.4 cm2 LA dimension(2D): 3.9 cm RA A4 area: 10.0 cm2 TAPSE: 2.4 cm Time Measurements MV dec time: 0.23 sec Doppler Measurements & Calculations MV E max kvng: 79.8 cm/sec Lat Peak E' Kvng: 7.9 cm/sec Med Peak E' Kvng: 6.5 cm/sec MV A max kvng: 62.0 cm/sec E/E' lat: 10.2 E/E' med: 12.2 MV E/A: 1.3 MV dec slope: 345.3 cm/sec2 Ao V2 max: 119.6 cm/sec LV V1 max: 95.8 cm/sec Ao max P.7 mmHg LV V1 max P.7 mmHg Ao V2 mean: 82.9 cm/sec Ao mean P.1 mmHg Ao V2 VTI: 29.7 cm PA V2 max: 68.6 cm/sec PI end-d kvng: 92.6 cm/sec TR max kvng: 254.9 cm/sec TR max P.0 mmHg ECHO/Echo Complete W/ Contrast Interpretation Summary The left ventricular ejection fraction is 40 %. Apical akinesis. Cannot exclude LV apical thrombus Ordering Physician: Lashon Evans Referring Physician: Lakesha Solis Performed By: Samanta Burleson, STEPHANIE, RVT
--- NOTE | 2023-07-24 16:03 | CRPHASE1_ITS ---
Patient Communication Patient Information PHII Cardiac Rehab Discussed with Patient:: Yes Guide to Cardiac Rehab Given to Patient:: Yes Cardiac Rehab Facility Choice List Given to Patient:: Yes Communication to Cardiac Rehab Choice Program [facility] CR PHII:: Communication Given to CR Bull Ladle Tender:: Ann Bravo Refer Phase II Cardiac Rehab:: Yes Cardiac Rehabilitation Info Program Information Cardiac Rehabilitation Program Information: Cardiac Rehab The cardiac rehab team at [facility] consists of highly skilled exercise physiologists, nurses, respiratory therapists and physicians working together with you. Our purpose is to help you have a full recovery and achieve the goals you set for yourself. Over the years many of our patients have returned to activities they assumed they would never do again! We can help restore your confidence and motivation to make lifestyle changes that can have a significant impact on your health and quality of life! We can help answer questions and concerns you may have about exercise, lifestyle, medications, diet, stress and anxiety which are common following a hospitalization. WE monitor ECG and vital signs during exercise and discuss your progress with you and report to your physician(s). Cardiac Rehab is proven to help reduce readmissions, improve functional capacity and lower recurrence of problems with your heart. Our Cardiac Rehab program is Certified by the [place] [employer]Vascular [employer] Pulmonary [employer] (AACVPR) and Accredited by the [employer] through our [facility]. You can contact us at . We invite you to call us with your questions or to get started in our program. If you have other questions or concerns be sure to ask your physician/provider during your follow-up visit. WE look forward to seeing you!
--- NOTE | 2023-07-24 16:04 | CRPH1.INSTRU ---
General Education Discussed with Patient CAD and cardiac anatomy and function:: Patient communicates acknowledgment Explanation of diagnoses and procedures:: Patient communicates acknowledgment Sign/Symptoms of DE:: Patient communicates acknowledgment Antiplatelet therapy: Patient communicates acknowledgment Proper use of NTG-SL: Patient communicates acknowledgment Emergency procedures and activation of EMS: Patient communicates acknowledgment Compliance of all prescribed medications: Patient communicates acknowledgment Dyslipidemia Recommendations Recommendations Include:: Lipid profile not available Response Code Dyslipidemia Response Code:: Patient communicates acknowledgment Hypertension Recommendations Recommendations Include:: Maintain BP <130/85, Decrease/maintain normal body weight and Moderation of ETOH Response Code Hypertension:: Patient communicates acknowledgment Heart Disease Risk Factors Patient Heart Disease Risk Factors Are:: Family history of heart disease < 65 years old Recommendations Recommendations Include:: Educated family members of their risk Response Code Heart Disease Response Code:: Patient communicates acknowledgment Sedentary Risk Factors Patient Sedentary Risk Factors Are:: Lack of regular exercise Recommendations Recommendations Include:: Aerobic exercise 5-7 times/week for 20-30 minutes continuously Response Code Sedentary Response Code:: Patient communicates acknowledgment
[2023-07-24 17:10] LABS: Troponin-I HS 4688 pg/mL (3.0-54.0)
[2023-07-24] MEDS: 0.9% Normal Saline (1000mL) 1,000 ML 75 ML IV (17:23)
[2023-07-24] MEDS: Lisinopril 5 MG Tablet PO (17:25)
[2023-07-24 19:26] LABS: Troponin-I HS 14277 pg/mL (3.0-54.0)
[2023-07-24] MEDS: Pantoprazole Sodium 40 MG Tablet PO (20:41)
[2023-07-24] MEDS: Atorvastatin Calcium 80 MG Tablet PO (20:41)
[2023-07-24] MEDS: TICAGRELOR 90 MG TABLET PO (20:41)
[2023-07-24] MEDS: Carvedilol 6.25 MG Tablet PO (20:41)
[2023-07-25] VITALS (34 sets, daily range): BP systolic 84–128; BP diastolic 53–76; PULSE 47–72; RESP 10–20; TEMP 36.6–36.7; O2SAT 94–100; BMI 26.8
[2023-07-25] MEDS: Levothyroxine 75 MCG Tablet PO (04:37)
[2023-07-25 04:47] LABS: Absolute Lymphocyte Count 1.56 X10^3/uL (0.83-4.51); Absolute Neutrophil Count 5.9 X10^3/uL (2.0-7.7); Basophil# 0.08 X10^3/uL; Basophil% 0.9 % (0-1); Eosinophil# 0.34 X10^3/uL; Eosinophils% 3.8 % (0-5); Hematocrit 38.6 % (37-47); Hemoglobin 12.2 g/dL (12.0-15.0); Lymphocyte # 1.56 X10^3/ul (0.83-4.51); Lymphocyte % 17.3 % (19-41); Mean Corp Hgb Conc 31.6 g/dL (32-36); Mean Corpuscular Hgb 27.4 pg (27.0-32.0); Mean Corpuscular Volume 86.5 fL (81-99); Mean Platelet Vol. 10.2 fl (6.2-12.0); Monocyte# 1.16 X10^3/uL; Monocyte% 12.9 % (0-10); NRBC Flagged by Analyzer 0 % (0-5); Neutrophil # 5.85 X10^3/uL (2.7-7.7); Neutrophil % 64.9 % (47-70); Platelet Count 294 K/mm3 (150-450); RBC Distribution Width CV 14.6 % (11.6-14.6); RBC Distribution Width SD 46.8 fl (35.1-43.9); Red Blood Count 4.46 M/mm3 (4.2-5.4)
[2023-07-25 05:12] LABS: AST(SGOT) 65 U/L (15-37); Alanine Aminotransfer ALT/SGPT 23 U/L (13-56); Albumin, Serum 3.3 g/dL (3.2-5.0); Alkaline Phosphatase 66 U/L (45-117); Anion Gap 6 (5-15); BUN 15 mg/dL (7-18); BUN/Creat Ratio 14.7 RATIO (10-20); Calcium,Total 8.6 mg/dL (8.5-10.1); Chloride 111 mmol/L (98-107); Cholesterol 193 mg/dL (200); Creatinine, Serum 1.02 mg/dL (0.55-1.02); EST Glomerular Filtration Rate 57 mL/min (>60); Est Glom Filt Rate - Afr Amer 69 mL/min (>60); Estimated Creatinine Clearance 42.45 ml/min; Globulin 3.4 g/dL (2.2-4.2); Glucose 97 mg/dL (74-106); High Density Lipoprotein 52 mg/dL; Protein, Total 6.7 g/dL (6.4-8.2); Sodium Level 141 mmol/L (136-145); Triglycerides 71 mg/dL; Very Low Density Lipoprotein 14 mg/dL (5-40)
[2023-07-25 05:34] LABS: Troponin-I HS 18986 pg/mL (3.0-54.0)
[2023-07-25] MEDS: Aspirin 81 MG TAB.CHEW PO (07:40)
[2023-07-25] MEDS: TICAGRELOR 90 MG TABLET PO ×2 (07:41→20:00)
[2023-07-25] MEDS: Carvedilol 6.25 MG Tablet PO (07:43)
[2023-07-25] MEDS: Enoxaparin 40 MG/0.4 ML Syringe SC (07:46)
[2023-07-25] MEDS: Pantoprazole Sodium 40 MG Tablet PO ×2 (07:47→20:00)
--- NOTE | 2023-07-25 08:58 | NURSING ---
pt c/o feel weird, return to bed per BUDGET DIRECTOR. pt then stated need to have bm. assisted to BR per BUDGET DIRECTOR. She immediately c/o not right, BUDGET DIRECTOR left pt to get assistance. This RN to BR, pt found laying on the floor, barely responsive to voice. Monitor shows SB 38, see SOFTWARE INTEGRATOR paperwork. Dr. Chan present
[2023-07-25] MEDS: Atropine Sulfate 1 MG/10 ML Syringe IV (09:00)
[2023-07-25] MEDS: 0.9% Normal Saline 250 ML IV.SOLN. IV (09:15)
--- NOTE | 2023-07-25 10:00 | EKG12_ITS ---
Test Reason : AM EKG Blood Pressure : / mmHG Vent. Rate : 053 BPM Atrial Rate : 053 BPM P-R Int : 148 ms QRS Dur : 084 ms QT Int : 456 ms P-R-T Axes : 060 058 073 degrees QTc Int : 427 ms Sinus bradycardia with sinus arrhythmia Nonspecific ST and T wave abnormality Abnormal ECG When compared with ECG of 24-JUL-2023 14:22, MANUAL COMPARISON REQUIRED, DATA IS UNCONFIRMED Confirmed by ALEXANDRIA ALVAREZ, CAMERON ([id number]), manuscript editor ELICIA DOCKERY ([id number]) on 07/30/2023 9:54:23 AM Referred By: Ann Bravo Confirmed By:CAMERON IBRAHIM MD
[2023-07-25] MEDS: 0.9% Normal Saline (1000mL) 1,000 ML 75 ML IV ×2 (10:15→20:01)
--- NOTE | 2023-07-25 12:11 | CL.I_ITS ---
Patient Name: RAY BURGOS Study Date: 07/24/2023 Performing: Deandra Bravo MD Ht: 63 inches 160.02 cm : 1955 Wt: 138.2 lbs 62.6 kg Age: 68 Gender: female BSA: 1.65 PROCEDURE(S) PERFORMED IC16-([id number])AMI, TANIA OR PTCA, ARTERY/GRAFT, SINGLE VESSEL DC02-([id number])LHC/COR CLINICAL PROFILE AND CO-MORBIDITIES Indications: ACS <= 24 hrs Heart Failure: None Stress/Imaging Stress/Image Study Performed: No CAD Presentations: STEMI. Symptom onset Date/Time: Time Not Available CONCLUSIONS CAD as described. Successful TANIA to mLAD RECOMMENDATIONS DESCRIPTION OF PROCEDURE The patient arrived to the procedure lab. The risks and benefits of the procedure as well as a full description of our services here and lack of surgical backup were fully explained to the patient and/or their significant other prior to the catheterization. The Timeout was completed, verifying the correct patient and procedure. The patient's procedural site was prepped and draped in the usual fashion. Local anesthetic was given subcutaneously to right radial region with Lidocaine 2%. Using a modified Seldinger technique, arterial access was obtained via the right radial artery, a 6Fr sheath was inserted.. Right Coronary Artery selective angiography was then performed in multiple views using a 5 Fr. JR 4 catheter. Left Coronary Artery selective angiography was performed in multiple views using a 6 Fr. XB 3.0The images were reviewed and options discussed. A decision was then made to proceed with an Intervention, IVUS or other adjunct procedure. XB 3.0 Guide catheter was inserted and engaged into the LCA. BMW Guide wire was advanced to the LAD. 2 x 12 Emerge Balloon catheter was advanced across lesion in the LAD, mid. PTCA balloon inflated at 6 atms for 18 secs. PTCA balloon inflated at 8 atms for 10 secs. PTCA balloon inflated at 8 atms for 10 secs. PTCA balloon inflated at 8 atms for 10 secs. 2.25x 34 [place] [employer] Eluting stent was inserted. Drug Eluting stent was removed intact, failed to cross lesion Runthrough Guide wire was inserted as a panda wire 2.25 x 34 [place] [employer] Eluting stent was inserted. Drug Eluting stent was advanced across the lesion in the LAD, mid. Angiogram performed post stent deployment. The arterial sheath was pulled and a TR Band was applied for hemostasis. 15cc air inserted. CORONARY ANGIOGRAPHY DOMINANCE: Right Dominant LEFT MAIN: Mild luminal irregularities LEFT ANTERIOR DESCENDING ARTERY: MID LAD: 99 % Stenosis CIRCUMFLEX ARTERY: DISTAL CIRC: 60 % Stenosis RIGHT CORONARY ARTERY: MID RCA: 30 % Stenosis INTERVENTION INFORMATION LESION SITE: LAD (Mid) Lesion Complexity: High/C, chronic total occlusion: No, lesion at bifurcation: Yes, thrombus present: Yes, lesion length: 32 mm, culprit lesion: Yes, Previously treated lesion: No Pre Stenosis: 99 % Pre intervention JELENA flow: 3 PROCEDURE: Drug Eluting Stent with pre dilatation. Post Stenosis: 0 % Post intervention JELENA flow: 3 Lesion Devices: Hough .014 190cm BMW [place] Straight Cordis 6 Fr XB3.0 100cm Guide Catheter Vinay Sci EMERGE MR 2.00x12 BALLOON Medtronic 2.25 x 34 MEGAN FRONTIER TANIA Terumo .014 180cm Runthrough Extra Floppy straight COMPLICATIONS No Complications PROCEDURE MEDICATIONS Oxygen: 2 L/min via nasal cannula Brilinta 180 mg PO @ 07/24/2023 15:49:53 Heparin given IA 07/24/2023 15:09:02 Heparin 1000 unit(s) IV 07/24/2023 15:14:17 Verapamil 2.5mg, Ntg 100mcgs, 3000 units of Heparin given IA 07/24/2023 15:09:02 SUMMARY OF HEMODYNAMIC DATA Time AIR REST ECG 15:04:04 AO 150/77 (106) SA 15:12:53 Signed By Deandra Bravo MD On 07/25/2023 12:11:21 Deandra Bravo MD
--- NOTE | 2023-07-25 12:23 | CT_ITS ---
STUDY: CT BRAIN WITHOUT CONTRAST REASON FOR EXAM: Female, 68 years old. fall RADIATION DOSAGE (If Supplied By Facility): CTDIvol = ( 44.99 ) mGy, DLP = ( 745.49 ) mGycm TECHNIQUE: Transaxial CT imaging of the brain was performed without administration of intravenous contrast material. Individualized dose optimization techniques were used for this CT. COMPARISON: 11/04/2020 FINDINGS: Normal soft tissue structures. Normal calvarium. Normal size ventricles and extra-axial spaces for the patient''s age. Normal white matter tracts of the cerebral hemispheres. Normal basal ganglia and thalami. Normal brainstem. Normal cerebellum. There is no intracranial hemorrhage. There are no findings of an acute ischemic infarction. Normal visualized paranasal sinuses. CT/Brain/Head without Contrast IMPRESSION: Normal unenhanced CT scan of the brain. Electronically Signed: Pasquale Vásquez MD at 13:09 EDT ,
[2023-07-25] MEDS: Acetaminophen 325 MG Tablet 650 MG PO (13:06)
[2023-07-25] MEDS: 0.9% Saline Lock 10 ML Syringe IV (13:07)
--- NOTE | 2023-07-25 13:57 | PN_ITS ---
Subjective Subjective Patient seen and examined. She was admitted with a complaint of chest pain yesterday and found to have STEMI. She was sent to the [facility] emerg[facility] and had cardiac cath with drug eluting stent to the LAD. A rapid response was called early this morning after she had pre syncopal episode whilst in the bathroom. She was found to be significantly bradycardic and was given atropine. She felt very weak and lightheaded. She denied any headache, chest pain, palpitations, dizziness, nausea, vomiting or any other symptoms. Objective Data Objective Data Vital Signs: Vital Signs Temp Pulse Resp BP Pulse Ox O2 Del Method 97.8 F 47 L 16 108/57 L 99 Room Air 07/25/23 12:00 07/25/23 13:30 07/25/23 13:30 07/25/23 13:30 07/25/23 13:30 07/25/23 13:30 Oxygen Delivery Method Room Air Weight: 129 lb 3.054 oz Body Mass Index (BMI) 22.8 Intake & Output: Intake and Output for Last 24 Hours 07/23/23 07/24/23 07/25/23 23:59 23:59 23:59 Intake Total 27.17 / 27.17 1550 / 1550 Output Total 400 / 400 Balance 27.17 / 27.17 1150 / 1150 Lab / Micro Data 07/25/23 04:30 07/25/23 04:30 Labs: Laboratory Results - last 24 hr 07/24/23 14:20: WBC 9.4, RBC 4.95, Hgb 13.6, Hct 43.2, MCV 87.3, MCH 27.5, MCHC 31.5 L, RDW Std Deviation 47.1 H, RDW Coeff of Heather 14.7 H, Plt Count 332, MPV 10.6, Immature Gran % (Auto) 0.100, Neut % (Auto) 37.1 L, Lymph % (Auto) 45.9 H, Yancey % (Auto) 11.0 H, Eos % (Auto) 4.8, Baso % (Auto) 1.1 H, Absolute Neuts (auto) 3.5, Absolute Lymphs (auto) 4.33, Nucleated RBC % 0, PT 12.3, INR 0.9, APTT 31.5, Sodium 141, Potassium 3.7, Chloride 106, Carbon Dioxide 28.0, Anion G ap 7, BUN 17, Creatinine 1.09 H, Estim Creat Clear Calc 39.73, Est GFR (MDRD) Af Amer 64, Est GFR (MDRD) Non-Af 53 L, BUN/Creatinine Ratio 15.6, Glucose 103, Calcium 9.5, Magnesium 2.5, Total Bilirubin 0.40, Direct Bilirubin 0.11, AST 18, ALT 19, Alkaline Phosphatase 78, Troponin I High Sens 98 H, Total Protein 8.0, Albumin 4.0, Globulin 4.0, Lipase 25 07/24/23 16:25: Troponin I High Sens [id number] H* 07/24/23 18:35: Troponin I High Sens [id number] H* 07/25/23 04:30: WBC 9.0, RBC 4.46, Hgb 12.2, Hct 38.6, MCV 86.5, MCH 27.4, MCHC 31.6 L, RDW Std Deviation 46.8 H, RDW Coeff of Heather 14.6, Plt Count 294, MPV 10.2, Immature Gran % (Auto) 0.200, Neut % (Auto) 64.9, Lymph % (Auto) 17.3 L, Yancey % (Auto) 12.9 H, Eos % (Auto) 3.8, Baso % (Auto) 0.9, Absolute Neuts (auto) 5.9, Absolute Lymphs (auto) 1.56, Nucleated RBC % 0, Sodium 141, Potassium 4.0, Chloride 111 H, Carbon Dioxide 24.0, Anion Gap 6, BUN 15, Creatinine 1.02, Estim Creat Clear Calc 42.45, Est GFR (MDRD) Af Amer 69, Est GFR (MDRD) Non-Af 57 L, BUN/Creatinine Ratio 14.7, Glucose 97, Calcium 8.6, Total Bilirubin 0.50, AST 65 H, ALT 23, Alkaline Phosphatase 66, Troponin I High Sens [id number] H*, Total Protein 6.7, Albumin 3.3, Globulin 3.4, Albumin/Globulin Ratio 1.0, Triglycerides 71, Cholesterol 193, LDL Cholesterol 127, VLDL Cholesterol 14, HDL Cholesterol 52 Radiography Diagnostic Testing: Radiology Impression Chest X-Ray 07/24/23 14:55 IMPRESSION: Normal x-ray examination of the chest. Electronically Signed: Pasquale Vásquez MD at 15:05 EDT , Brain CT 07/25/23 12:23 IMPRESSION: Normal unenhanced CT scan of the brain. Electronically Signed: Pasquale Vásquez MD at 13:09 EDT , Rhythm Strip Rhythm Strip: Sinus Rhythm Rate: 90 Ectopy: None Physical Exam Const Constitutional Narrative: weak, frail Orientation / Consciousness: lethargic HEENT normocephalic, head/scalp atraumatic, moist oral mucous membranes and oropharynx normal Eyes PERRL and EOMs intact bilaterally Neck no lymphadenopathy and supple Lymph Lymphatic: no lymphadenopathy noted and no lymphedema noted Resp Resp Narrative: diminished breath sounds bibasally, no wheezes or crackles. On room air. Cardio regular rhythm, S1 normal heart sound, S2 normal heart sound and no murmurs Cardio Narrative: bradycardic GI normal to inspection, nondistended, normoactive bowel sounds, soft to palpation, non-tender and non-distended Extremity normal capillary refill, no clubbing, cyanosis or edema and no calf tenderness Skin General Skin Exam: no breakdown and turgor normal Neuro CN's II-XII intact bilaterally, no focal motor deficits, no sensory deficits noted and deep tendon reflexes 2+ bilaterally Neuro Narrative: frail, weak Motor Exam: general weakness Psych cooperative Activity / Motor Behavior: restless Mood & Affect: anxious Assessment & Plan Assessment/Plan (1) STEMI (ST elevation myocardial infarction): QUALIFIERS: Involved coronary artery: LAD coronary artery Qualified Code(s): I21.02 - ST elevation (STEMI) myocardial infarction involving left anterior descending coronary artery (2) Acute ND: PLAN: Plan #STEMI * Was admitted with chest pain and found to have inferior ST elevation ND. * She is s/p cardiac cath which showed occlusion of the LAD and she had PCI with drug-eluting stent to the LAD. * On aspirin and Brilinta as well as high intensity statin and carvedilol. Also on lisinopril. Carvedilol and lisinopril held due to bradycardia this morning. * 2D echo ordered for tomorrow. Cardiology on board. Lipid panel ordered. * #Presyncope due to bradycardia * Patient had a presyncopal episode this morning was was the bathroom. She was symptomatically bradycardic with heart rate into the 30s. She was given a dose of atropine. * Carvedilol held. * Cardiology on board. * 2D echo ordered for tomorrow. Potassium within normal limits. * Check TSH as well. * #Hypothyroidism: On Synthroid #GERD: On PPI #Elevated BP: Noted on hypertensive. Currently Coreg and lisinopril on a cardiovascular aggressive airway with this to be held due to bradycardia. DVT prophylaxis: Lovenox Charges/Coding Visit Charges Inpatient E&M: 99535 [facility] H[facility] L3
--- NOTE | 2023-07-25 14:09 | PCM.PN.CARD ---
Subjective Subjective Patient currently is resting comfortably with no cardiac complaints. Earlier today she had an presyncopal episode with bradycardia requiring atropine administration. After that her beta-kyaw and KAI inhibitor are on hold. Her blood pressure is running on the low side as well. Objective Data Vital Signs: Vital Signs Temp Pulse Resp BP Pulse Ox O2 Del Method 97.8 F 47 L 16 108/57 L 99 Room Air 07/25/23 12:00 07/25/23 13:30 07/25/23 13:30 07/25/23 13:30 07/25/23 13:30 07/25/23 13:30 Oxygen Delivery Method Room Air Weight: 129 lb 3.054 oz Body Mass Index (BMI) 22.8 Intake & Output: Intake and Output for Last 24 Hours 07/23/23 07/24/23 07/25/23 23:59 23:59 23:59 Intake Total 27.17 / 27.17 1550 / 1550 Output Total 400 / 400 Balance 27.17 / 27.17 1150 / 1150 Lab / Micro Data 07/25/23 04:30 07/25/23 04:30 Labs: Laboratory Results - last 24 hr 07/24/23 14:20: WBC 9.4, RBC 4.95, Hgb 13.6, Hct 43.2, MCV 87.3, MCH 27.5, MCHC 31.5 L, RDW Std Deviation 47.1 H, RDW Coeff of Heather 14.7 H, Plt Count 332, MPV 10.6, Immature Gran % (Auto) 0.100, Neut % (Auto) 37.1 L, Lymph % (Auto) 45.9 H, [place] % (Auto) 11.0 H, Eos % (Auto) 4.8, Baso % (Auto) 1.1 H, Absolute Neuts (auto) 3.5, Absolute Lymphs (auto) 4.33, Nucleated RBC % 0, PT 12.3, INR 0.9, APTT 31.5, Sodium 141, Potassium 3.7, Chloride 106, Carbon Dioxide 28.0, Anion Gap 7, BUN 17, Creatinine 1.09 H, Estim Creat Clear Calc 39.73, Est GFR (MDRD) Af Amer 64, Est GFR (MDRD) Non-Af 53 L, BUN/Creatinine Ratio 15.6, Glucose 103, Calcium 9.5, Magnesium 2.5, Total Bilirubin 0.40, Direct Bilirubin 0.11, AST 18, ALT 19, Alkaline Phosphatase 78, Troponin I High Sens 98 H, Total Protein 8.0, Albumin 4.0, Globulin 4.0, Lipase 25 07/24/23 16:25: Troponin I High Sens 4688 H* 07/24/23 18:35: Troponin I High Sens [id number] H* 07/25/23 04:30: WBC 9.0, RBC 4.46, Hgb 12.2, Hct 38.6, MCV 86.5, MCH 27.4, MCHC 31.6 L, RDW Std Deviation 46.8 H, RDW Coeff of Heather 14.6, Plt Count 294, MPV 10.2, Immature Gran % (Auto) 0.200, Neut % (Auto) 64.9, Lymph % (Auto) 17.3 L, [place] % (Auto) 12.9 H, Eos % (Auto) 3.8, Baso % (Auto) 0.9, Absolute Neuts (auto) 5.9, Absolute Lymphs (auto) 1.56, Nucleated RBC % 0, Sodium 141, Potassium 4.0, Chloride 111 H, Carbon Dioxide 24.0, Anion Gap 6, BUN 15, Creatinine 1.02, Estim Creat Clear Calc 42.45, Est GFR (MDRD) Af Amer 69, Est GFR (MDRD) Non-Af 57 L, BUN/Creatinine Ratio 14.7, Glucose 97, Calcium 8.6, Total Bilirubin 0.50, AST 65 H, ALT 23, Alkaline Phosphatase 66, Troponin I High Sens [id number] H*, Total Protein 6.7, Albumin 3.3, Globulin 3.4, Albumin/Globulin Ratio 1.0, Triglycerides 71, Cholesterol 193, LDL Cholesterol 127, VLDL Cholesterol 14, HDL Cholesterol 52 Rhythm Strip Rhythm Strip: Sinus Rhythm Rate: 90 Ectopy: None Cardiology Labs/Tests 07/24/23 14:20: WBC 9.4, RBC 4.95, Hgb 13.6, Hct 43.2, MCV 87.3, MCH 27.5, MCHC 31.5 L, Plt Count 332, MPV 10.6, Immature Gran % (Auto) 0.100, Neut % (Auto) 37.1 L, Lymph % (Auto) 45.9 H, [place] % (Auto) 11.0 H, Eos % (Auto) 4.8, Baso % (Auto) 1.1 H, Absolute Neuts (auto) 3.5, Nucleated RBC % 0, PT 12.3, INR 0.9, APTT 31.5, Sodium 141, Potassium 3.7, Chloride 106, Carbon Dioxide 28.0, Anion Gap 7, BUN 17, Creatinine 1.09 H, Est GFR (MDRD) Af Amer 64, Est GFR (MDRD) Non-Af 53 L, BUN/Creatinine Ratio 15.6, Glucose 103, Calcium 9.5, Magnesium 2.5, Total Bilirubin 0.40, Direct Bilirubin 0.11 07/25/23 04:30: WBC 9.0, RBC 4.46, Hgb 12.2, Hct 38.6, MCV 86.5, MCH 27.4, MCHC 31.6 L, Plt Count 294, MPV 10.2, Immature Gran % (Auto) 0.200, Neut % (Auto) 64.9, Lymph % (Auto) 17.3 L, [place] % (Auto) 12.9 H, Eos % (Auto) 3.8, Baso % (Auto) 0.9, Absolute Neuts (auto) 5.9, Nucleated RBC % 0, Sodium 141, Potassium 4.0, Chloride 111 H, Carbon Dioxide 24.0, Anion Gap 6, BUN 15, Creatinine 1.02, Est GFR (MDRD) Af Amer 69, Est GFR (MDRD) Non-Af 57 L, BUN/Creatinine Ratio 14.7, Glucose 97, Calcium 8.6, Total Bilirubin 0.50, Triglycerides 71, Cholesterol 193, LDL Cholesterol 127, VLDL Cholesterol 14, HDL Cholesterol 52 Rhythm: EKG: ECHO: Stress Test: Cardiac Cath: PCI: CT Surgery: Holter monitor: EPS: PPM: CXR: Chest CT Scan: Radiography Diagnostic Testing: Radiology Impression Chest X-Ray 07/24/23 14:55 IMPRESSION: Normal x-ray examination of the chest. Electronically Signed: Pasquale Vásquez MD at 15:05 EDT , Brain CT 07/25/23 12:23 IMPRESSION: Normal unenhanced CT scan of the brain. Electronically Signed: Pasquale Vásquez MD at 13:09 EDT , Physical Exam Const alert and oriented x3 HEENT normocephalic Eyes no scleral icterus Resp normal respiratory effort and clear to auscultation bilaterally Cardio regular rate Extremity no pedal edema Psych mental status grossly normal Assessment & Plan Assessment/Plan (1) STEMI (ST elevation myocardial infarction): QUALIFIERS: Involved coronary artery: LAD coronary artery Qualified Code(s): I21.02 - ST elevation (STEMI) myocardial infarction involving left anterior descending coronary artery PLAN: Treated with drug-eluting stent to LAD. We will keep the patient on aspirin, Brilinta, statin. We will check a 2D echo. Patient has been bradycardic and blood pressure is on the low side. She had a presyncopal episode as well this morning. We will hold her beta-kyaw and KAI inhibitor for now. We will continue to monitor her closely in the CCU.
[2023-07-25] MEDS: Atorvastatin Calcium 80 MG Tablet PO (20:00)
[2023-07-26] VITALS (18 sets, daily range): BP systolic 92–156; BP diastolic 49–80; PULSE 50–74; RESP 12–23; TEMP 36.1–36.9; O2SAT 92–100; BMI 27.6
[2023-07-26] MEDS: Levothyroxine 75 MCG Tablet 37.5 MCG PO (05:38)
[2023-07-26 05:54] LABS: Absolute Lymphocyte Count 1.62 X10^3/uL (0.83-4.51); Absolute Neutrophil Count 4.9 X10^3/uL (2.0-7.7); Basophil# 0.08 X10^3/uL; Eosinophil# 0.36 X10^3/uL; Eosinophils% 4.5 % (0-5); Hematocrit 34.4 % (37-47); Lymphocyte # 1.62 X10^3/ul (0.83-4.51); Lymphocyte % 20.1 % (19-41); Mean Corpuscular Hgb 27.9 pg (27.0-32.0); Mean Corpuscular Volume 87.3 fL (81-99); Mean Platelet Vol. 10.8 fl (6.2-12.0); Monocyte# 1.11 X10^3/uL; Monocyte% 13.8 % (0-10); NRBC Flagged by Analyzer 0 % (0-5); Neutrophil # 4.86 X10^3/uL (2.7-7.7); Neutrophil % 60.4 % (47-70); Platelet Count 257 K/mm3 (150-450); RBC Distribution Width CV 14.9 % (11.6-14.6); RBC Distribution Width SD 47.8 fl (35.1-43.9); Red Blood Count 3.94 M/mm3 (4.2-5.4); White Blood Count 8.1 K/mm3 (4.4-11.0)
[2023-07-26 06:08] LABS: Anion Gap 5 (5-15); BUN 17 mg/dL (7-18); BUN/Creat Ratio 16.3 RATIO (10-20); Calcium,Total 8.2 mg/dL (8.5-10.1); Chloride 115 mmol/L (98-107); Creatinine, Serum 1.04 mg/dL (0.55-1.02); EST Glomerular Filtration Rate 56 mL/min (>60); Est Glom Filt Rate - Afr Amer 67 mL/min (>60); Estimated Creatinine Clearance 41.64 ml/min; Glucose 98 mg/dL (74-106); Potassium 3.6 mmol/L (3.5-5.1); Sodium Level 143 mmol/L (136-145)
--- NOTE | 2023-07-26 07:21 | PCM.PN.HOSP ---
Reason for Visit Reason for Visit: Diagnoses ST elevation (STEMI) myocardial infarction involving left anterior descending coronary artery (07/24/23) ST elevation (STEMI) myocardial infarction of unspecified site (07/24/23) Acute myocardial infarction, unspecified (07/24/23) Subjective Subjective Syncopal episode yesterday when she was bradycardic. Objective Data Objective Data Vital Signs: Vital Signs Temp Pulse Resp BP Pulse Ox O2 Del Method 36.9 C 52 L 16 109/57 L 96 Room Air 07/26/23 04:00 07/26/23 06:00 07/26/23 06:00 07/26/23 06:00 07/26/23 07:09 07/26/23 07:09 Oxygen Delivery Method Room Air Weight: 70.8 kg Body Mass Index (BMI) 27.6 Intake & Output: Intake and Output for Last 24 Hours 07/24/23 07/25/23 07/26/23 23:59 23:59 23:59 Intake Total 27.17 / .17 2482.5 / 2482.5 100 / 100 Output Total 400 / 650 550 / 550 Balance 27.17 / .17 2082.5 / 1832.5 -450 / -450 Lab / Micro Data 07/26/23 05:20 07/26/23 05:20 Labs: Laboratory Results - last 24 hr 07/26/23 05:20: WBC 8.1, RBC 3.94 L, Hgb 11.0 L, Hct 34.4 L, MCV 87.3, MCH 27.9, MCHC 32.0, RDW Std Deviation 47.8 H, RDW Coeff of Heather 14.9 H, Plt Count 257, MPV 10.8, Immature Gran % (Auto) 0.200, Neut % (Auto) 60.4, Lymph % (Auto) 20.1, [place] % (Auto) 13.8 H, Eos % (Auto) 4.5, Baso % (Auto) 1.0, Absolute Neuts (auto) 4.9, Absolute Lymphs (auto) 1.62, Nucleated RBC % 0, Sodium 143, Potassium 3.6, Chloride 115 H, Carbon Dioxide 23.0, Anion Gap 5, BUN 17, Creatinine 1.04 H, Estim Creat Clear Calc 41.64, Est GFR (MDRD) Af Amer 67, Est GFR (MDRD) Non-Af 56 L, BUN/Creatinine Ratio 16.3, Glucose 98, Calcium 8.2 L Radiography Diagnostic Testing: Radiology Impression Brain CT 07/25/23 12:23 IMPRESSION: Normal unenhanced CT scan of the brain. Electronically Signed: Pasquale Vásquez MD at 13:09 EDT Reading Location ID and State: [facility] / [place] Tel , Service support , Rhythm Strip Rhythm Strip: Sinus Rhythm Rate: 90 Ectopy: None Physical Exam Const alert and no apparent distress Resp normal respiratory effort, no retractions, no use of accessory muscles and clear to auscultation bilaterally Cardio regular rate, regular rhythm, S1 normal heart sound and S2 normal heart sound GI normal to inspection, nondistended, normoactive bowel sounds, soft to palpation, non-tender and non-distended Extremity normal to inspection Assessment & Plan Assessment/Plan (1) STEMI (ST elevation myocardial infarction): QUALIFIERS: Involved coronary artery: LAD coronary artery Qualified Code(s): I21.02 - ST elevation (STEMI) myocardial infarction involving left anterior descending coronary artery PLAN: Was admitted with chest pain and found to have inferior ST elevation [place]. She is s/p cardiac cath 07/24 which showed occlusion of the LAD and she had PCI with drug-eluting stent to the LAD. On aspirin and Brilinta as well as high intensity statin and carvedilol. Also on lisinopril. Carvedilol and lisinopril held due to bradycardia this morning. 2D echo ordered for tomorrow. Cardiology on board. Lipid panel ordered. (2) Bradycardia: PLAN: Syncope on 07/25 from bradycardia. Carvedilol held. HR improved into the 50s and 60s. PLAN: Plan Chronic conditions: Hypothyroidism: On Synthroid GERD: On PPI VTE prophylaxis: Lovenox Cardiology wants to monitor another night. Transfer to PCU. Charges/Coding Visit Charges Inpatient E&M: 28178 Subs Hosp L2
[2023-07-26] MEDS: Pantoprazole Sodium 40 MG Tablet PO ×2 (07:32→19:51)
[2023-07-26] MEDS: Aspirin 81 MG TAB.CHEW PO (07:33)
[2023-07-26] MEDS: Enoxaparin 40 MG/0.4 ML Syringe SC (07:33)
[2023-07-26] MEDS: TICAGRELOR 90 MG TABLET PO (07:33)
[2023-07-26] MEDS: 0.9% Normal Saline (1000mL) 1,000 ML 75 ML IV ×2 (07:36→19:50)
--- NOTE | 2023-07-26 08:46 | CASEMGMT ---
Social Work Pt had indicated w/admitting RN would like additional information about LW/POA. SW spoke w/pt about this, she was not interested in completing at this time but did want the information. SW reviewed the information w/pt and gave pt the number to the social work department, should she want to complete the documents with social work assist after discharge. SW also gave pt blank forms should she want to complete them on her own. MARGARITO Short
--- NOTE | 2023-07-26 09:35 | CASEMGMT ---
RN CM Face to Face with patient for initial transition planning/care coordination assessment. RN CM introduced self and role at [facility]. Patient lying in bed, alert and oriented. Patient willing to participate in assessment and is able to answer all questions appropriately. Care providers, pharmacy, and demographics verified. Patient wishes to discharge home, denies need for home health at this time. Patient states she has no further needs or concerns at this time. CM to follow for discharge planning needs that may arise. PCP: Will Specialists: surgeon Santiago Cabrera Pharmacy: [facility] Insurance: [facility], [place] [facility] [place] Prescription Benefit: yes, Brilinta 30 day savings card provided to patient Living Will/HPOA: none LNOK: daughter Living Arrangements: Patient lives alone in a first floor apartment with no steps to enter. Patient is normally independent at home. Patient states sister is flying in to help patient at home Transportation: self, daughter, sister DME/HHC: Patient has cane at home. No previous HHC or SNF Disposition Plan: Patient to discharge home with family support and follow-up plans in place. Faye REYES, RN, CM
--- NOTE | 2023-07-26 10:00 | EKG12_ITS ---
Test Reason : AM EKG Blood Pressure : / mmHG Vent. Rate : 056 BPM Atrial Rate : 056 BPM P-R Int : 130 ms QRS Dur : 084 ms QT Int : 494 ms P-R-T Axes : 054 057 146 degrees QTc Int : 476 ms Sinus bradycardia T wave abnormality, consider anterolateral ischemia Prolonged QT Abnormal ECG When compared with ECG of 25-JUL-2023 05:05, MANUAL COMPARISON REQUIRED, DATA IS UNCONFIRMED Confirmed by ALEXANDRIA ALVAREZ, CAMERON ([id number]), supervising film or videotape editor ELICIA DOCKERY ([id number]) on 07/30/2023 9:53:00 AM Referred By: Ann Bravo Confirmed By:CAMERON IBRAHIM MD
--- NOTE | 2023-07-26 13:01 | PCM.PN.CARD ---
Subjective Subjective Denies any complaints. Lying flat in the bed. No apparent distress. Objective Data Vital Signs: Vital Signs Temp Pulse Resp BP Pulse Ox O2 Del Method 97.7 F L 74 23 H 95/60 97 Room Air 07/26/23 08:00 07/26/23 12:00 07/26/23 12:00 07/26/23 12:00 07/26/23 12:00 07/26/23 12:00 Oxygen Delivery Method Room Air Weight: 156 lb 1.396 oz Body Mass Index (BMI) 27.6 Intake & Output: Intake and Output for Last 24 Hours 07/24/23 07/25/23 07/26/23 23:59 23:59 23:59 Intake Total . / . 2482.5 / 2482.5 968.75 / 968.75 Output Total 400 / 650 550 / 550 Balance . / 2082.5 / 1832.5 418.75 / 418.75 Lab / Micro Data 07/26/23 05:20 07/26/23 05:20 Labs: Laboratory Results - last 24 hr 07/26/23 05:20: WBC 8.1, RBC 3.94 L, Hgb 11.0 L, Hct 34.4 L, MCV 87.3, MCH 27.9, MCHC 32.0, RDW Std Deviation 47.8 H, RDW Coeff of Heather 14.9 H, Plt Count 257, MPV 10.8, Immature Gran % (Auto) 0.200, Neut % (Auto) 60.4, Lymph % (Auto) 20.1, [place] % (Auto) 13.8 H, Eos % (Auto) 4.5, Baso % (Auto) 1.0, Absolute Neuts (auto) 4.9, Absolute Lymphs (auto) 1.62, Nucleated RBC % 0, Sodium 143, Potassium 3.6, Chloride 115 H, Carbon Dioxide 23.0, Anion Gap 5, BUN 17, Creatinine 1.04 H, Estim Creat Clear Calc 41.64, Est GFR (MDRD) Af Amer 67, Est GFR (MDRD) Non-Af 56 L, BUN/Creatinine Ratio 16.3, Glucose 98, Calcium 8.2 L Rhythm Strip Rhythm Strip: Sinus Rhythm Rate: 90 Ectopy: None Cardiology Labs/Tests 07/26/23 05:20: WBC 8.1, RBC 3.94 L, Hgb 11.0 L, Hct 34.4 L, MCV 87.3, MCH 27.9, MCHC 32.0, Plt Count 257, MPV 10.8, Immature Gran % (Auto) 0.200, Neut % (Auto) 60.4, Lymph % (Auto) 20.1, [place] % (Auto) 13.8 H, Eos % (Auto) 4.5, Baso % (Auto) 1.0, Absolute Neuts (auto) 4.9, Nucleated RBC % 0, Sodium 143, Potassium 3.6, Chloride 115 H, Carbon Dioxide 23.0, Anion Gap 5, BUN 17, Creatinine 1.04 H, Est GFR (MDRD) Af Amer 67, Est GFR (MDRD) Non-Af 56 L, BUN/Creatinine Ratio 16.3, Glucose 98, Calcium 8.2 L Rhythm: EKG: ECHO: Stress Test: Cardiac Cath: PCI: CT Surgery: Holter monitor: EPS: PPM: CXR: Chest CT Scan: Radiography Diagnostic Testing: Radiology Impression Echocardiogram 07/24/23 15:54 Interpretation Summary The left ventricular ejection fraction is 40 %. Apical akinesis. Cannot exclude LV apical thrombus Ordering Physician: Lashon Evans Referring Physician: Lakesha Solis Performed By: Samanta Burleson, STEPHANIE, RVT Brain CT 07/25/23 12:23 IMPRESSION: Normal unenhanced CT scan of the brain. Electronically Signed: Pasquale Vásquez MD at 13:09 EDT , Physical Exam Narrative Stable. Heart sounds 1 and 2 are normal. No murmurs or rubs are noted. Chest clear to auscultation bilaterally. Alert oriented x3. No ankle edema. Assessment & Plan Assessment/Plan (1) STEMI (ST elevation myocardial infarction): QUALIFIERS: Involved coronary artery: LAD coronary artery Qualified Code(s): I21.02 - ST elevation (STEMI) myocardial infarction involving left anterior descending coronary artery PLAN: Status post drug-eluting stent to the mid left anterior descending artery. Stable. Possible LV apical thrombus on echocardiogram. Will start on apixaban. As we are starting apixaban, I will switch her antiplatelet therapy to clopidogrel and discontinue aspirin. Continue statins. No beta-blockers for now in view of borderline blood pressure and bradycardia. (2) Coronary artery disease: PLAN: See #1 above. (3) Left ventricular systolic dysfunction (LVSD): PLAN: LVEF approximately 40%. Start low-dose KAI inhibitor. Beta-blockers when blood pressure and heart rate able to tolerate. Possible LV apical thrombus. Started on apixaban as noted above.
[2023-07-26] MEDS: APIXABAN 5 MG TABLET PO ×2 (14:40→19:51)
--- NOTE | 2023-07-26 14:41 | CHAPLAIN ---
Type of Pastoral Visit _x__ Initial Visit ___ Follow-up Visit ___ On-call Visit ___ General Patient Visit ___ Spiritual Assessment ___ Family Conference ___ Bereavement ___ Rapid Response ___ Code Blue ___ Other (describe below) Pastoral Care Referral From _x__ Patient ___ Family ___ Nurse ___ Physician ___ Development Spec ___ National Secretary ___ Other (describe below) Sacrament/Intervention _x__ Active listening ___ Anointing ___ Evangelical ___ Bereavement ___ Communion _x__ Hue exploration ___ _x__ Life review _x__ Prayer ___ Reconciliation ___ Sacrament of Sick _x__ Supportive presence ___ Wedding ___ Other (describe below) Pastoral Comments patient is tearful at times during the visit as 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
[2023-07-26] MEDS: Clopidogrel Bisulfate 300 MG Tablet PO (17:15)
[2023-07-26] MEDS: Atorvastatin Calcium 80 MG Tablet PO (19:50)
[2023-07-26] MEDS: Lisinopril 2.5 MG Tablet PO (19:51)
[2023-07-27 03:39] VITALS: BMI 27.8
[2023-07-27 04:08] VITALS: BP 108/61; PULSE 52; RESP 18; TEMP 36.1; O2SAT 93
[2023-07-27] MEDS: Levothyroxine 75 MCG Tablet PO (04:11)
--- NOTE | 2023-07-27 08:30 | PCM.PN.HOSP ---
Reason for Visit Reason for Visit: Diagnoses ST elevation (STEMI) myocardial infarction involving left anterior descending coronary artery (07/24/23) ST elevation (STEMI) myocardial infarction of unspecified site (07/24/23) Acute myocardial infarction, unspecified (07/24/23) Atherosclerotic heart disease of campo coronary artery without angina pectoris (07/24/23) Heart disease, unspecified (07/24/23) Bradycardia, unspecified (07/24/23) Subjective Subjective Feels well. No events overnight. Objective Data Objective Data Vital Signs: Vital Signs Temp Pulse Resp BP Pulse Ox O2 Del Method 36.1 C L 52 L 18 108/61 93 Room Air 07/27/23 04:08 07/27/23 04:08 07/27/23 04:08 07/27/23 04:08 07/27/23 04:08 07/27/23 04:08 Oxygen Delivery Method Room Air Weight: 71.2 kg Body Mass Index (BMI) 27.8 Intake & Output: Intake and Output for Last 24 Hours 07/25/23 07/26/23 07/27/23 23:59 23:59 23:59 Intake Total 2482.5 / 2482.5 2366.25 / 2366.25 120 / 120 Output Total 400 / 650 550 / 550 Balance 2082.5 / 1832.5 1816.25 / 1816.25 120 / 120 Lab / Micro Data 07/26/23 05:20 07/26/23 05:20 Radiography Diagnostic Testing: Radiology Impression Echocardiogram 07/24/23 15:54 Interpretation Summary The left ventricular ejection fraction is 40 %. Apical akinesis. Cannot exclude LV apical thrombus Ordering Physician: Lashon Evans Referring Physician: Lakesha Solis Performed By: Samanta Burleson, STEPHANIE, RVT Rhythm Strip Rhythm Strip: Sinus Rhythm Rate: 90 Ectopy: None Physical Exam Const alert and no apparent distress HEENT head/scalp atraumatic and moist oral mucous membranes Resp normal respiratory effort, no retractions, no use of accessory muscles and clear to auscultation bilaterally Cardio regular rate, regular rhythm, S1 normal heart sound and S2 normal heart sound GI normal to inspection, nondistended, normoactive bowel sounds, soft to palpation, non-tender and non-distended Assessment & Plan Assessment/Plan (1) STEMI (ST elevation myocardial infarction): QUALIFIERS: Involved coronary artery: LAD coronary artery Qualified Code(s): I21.02 - ST elevation (STEMI) myocardial infarction involving left anterior descending coronary artery PLAN: Was admitted with chest pain and found to have inferior ST elevation [place]. She is s/p cardiac cath 07/24 which showed occlusion of the LAD and she had PCI with drug-eluting stent to the LAD. On aspirin and Brilinta as well as high intensity statin and carvedilol. Also on lisinopril. Carvedilol and lisinopril held due to bradycardia this morning. 2D echo ordered for tomorrow. Cardiology on board. Lipid panel ordered. (2) Bradycardia: PLAN: Syncope on 07/25 from bradycardia. Carvedilol held. HR improved into the 50s and 60s. PLAN: Plan Chronic conditions: Hypothyroidism: On Synthroid GERD: On PPI VTE prophylaxis: Lovenox DC home.
[2023-07-27 08:44] VITALS: O2SAT 96
[2023-07-27 09:27] VITALS: BP 130/70; PULSE 50; RESP 15; TEMP 36.3; O2SAT 97
[2023-07-27] MEDS: Clopidogrel Bisulfate 75 MG Tablet PO (09:34)
[2023-07-27] MEDS: Pantoprazole Sodium 40 MG Tablet PO (09:34)
[2023-07-27] MEDS: 0.9% Normal Saline (1000mL) 1,000 ML 75 ML IV (09:34)
[2023-07-27] MEDS: APIXABAN 5 MG TABLET PO (09:34)
--- NOTE | 2023-07-27 12:03 | DS.PCM_ITS ---
Providers Date of Admission: 07/24/23 Primary Care Physician: Dr. Lakesha Solis MD Reason For Visit: STEMI Diagnosis Discharge Diagnosis (1) STEMI (ST elevation myocardial infarction): Status: Acute Code(s): I21.3 - ST elevation (STEMI) myocardial infarction of unspecified site Qualifiers: Involved coronary artery: LAD coronary artery Qualified Code(s): I21.02 - ST elevation (STEMI) myocardial infarction involving left anterior descending coronary artery Plan: Was admitted with chest pain and found to have inferior ST elevation [place]. She is s/p cardiac cath 07/24 which showed occlusion of the LAD and she had PCI with drug-eluting stent to the LAD. On clopidogrel as well as high intensity statin and carvedilol. Also on lisinopril. ASA held as pt subsequently placed on apixaban. 2D echo ordered for tomorrow. Cardiology on board. Lipid panel ordered. (2) Bradycardia: Status: Acute Code(s): R00.1 - Bradycardia, unspecified Plan: Syncope on 07/25 from bradycardia. Carvedilol held. HR improved into the 50s and 60s. Plan Chronic conditions: * Hypothyroidism: On Synthroid * GERD: On PPI VTE prophylaxis: Lovenox DC home. Medications at Discharge Home Medications pantoprazole 20 mg tablet,delayed release 40 mg PO BID GERD 07/23/13 levothyroxine 75 mcg tablet 75 mcg PO DAILY THYROID 03/31/22 apixaban 5 mg tablet (Eliquis) 5 mg PO BID #60 tabs 07/27/23 atorvastatin 80 mg tablet 80 mg PO QHS #30 tabs 07/27/23 clopidogrel 75 mg tablet 75 mg PO DAILY #30 tabs 07/27/23 lisinopril 2.5 mg tablet 2.5 mg PO DAILY #30 tabs 07/27/23 Hospital Course Operations None Procedures 2-D Echocardiogram and Cardiac catheterization Summary of Care Provided Minutes Spent on Discharge: 32 Hospital Course: Presents with chest pain. Patient found to have ST ovation myocardial infarction. Patient had a drug-eluting stent placed to LAD on the . Norma ent was started on clopidogrel, statin, carvedilol and lisinopril. Patient did well but then had a syncopal episode on the where she hit her head. Patient was noted to be bradycardic so the carvedilol was held. Patient's course was otherwise uncomplicated. Patient will be discharged today. Concern for LV thrombus as it cannot be ruled on echocardiogram. Patient has since been started on apixaban. Weight / BMI Weight Weight: 71.2 kg Body Mass Index (BMI) 27.8 ABG / Lab / Microbiology Data 07/26/23 05:20 07/26/23 05:20 Radiography Diagnostic Testing: Radiology Impression Echocardiogram 07/24/23 15:54 Interpretation Summary The left ventricular ejection fraction is 40 %. Apical akinesis. Cannot exclude LV apical thrombus Ordering Physician: Lashon Evans Referring Physician: Lakesha Solis Performed By: Samanta Burleson RDCS, RVT D/C Instructions Discharge Diet: Low fat / Low cholesterol Meaningful Use Info Meaningful Use Diagnoses (Choose all that apply): AMI AMI/Post PCI/Angioplasty Aspirin given w/in 24hrs of arrival?: Yes ASA at discharge?: Yes Antiplatelet Therapy at Discharge:: Yes Statins at discharge?: Yes Martin/ARB at discharge?: Yes Beta Howard at discharge?: No Reason Beta Howard not ordered:: Drug Interaction (bradycardia) Done w/ Acute OR measure.: Yes Documented LVEF (%): 40 Discharge Plan Admission Admit Date/Time: 07/24/23 15:04 Primary Reason for Your Visit: STEMI Attending Provider: Haseeb Murcia Primary Care Provider: Lakesha Solis Consulting Providers: Lashon Evans; Filomena Chan Instructions Additional Instructions / Restrictions: You had a myocardial infarction requiring stent placement. You will be on will clopidogrel (Plavix), atorvastatin. There is concern there may be a clot within your heart so you are on a blood thinner for that called apixaban (Eliquis.). You will need to follow-up cardiology in regards to releasing you back to your normal routine for work. Discharge Orders/Prescriptions Prescriptions: New Eliquis 5 mg Tablet 5 mg PO BID Qty: 60 0RF atorvastatin 80 mg Tablet 80 mg PO QHS Qty: 30 0RF clopidogrel 75 mg Tablet 75 mg PO DAILY Qty: 30 0RF lisinopril 2.5 mg Tablet 2.5 mg PO DAILY Qty: 30 0RF Continued pantoprazole 20 MG tablet 40 mg PO BID levothyroxine 75 mcg tablet 75 mcg PO DAILY Rx Instructions: M,W,F Take a half of pill on T,T,S,S take a whole pill Referrals / Follow Up: [facility] [Provider Group] - Within 2 Weeks Lakesha Solis MD [Primary Care Provider] - Within 2 Weeks Disposition Disposition (needs filled in before D/C Order can be placed): Home, Self Care Charges/Coding Visit Charges Inpatient E&M: 76717 Disch Hosp >30min
[2023-07-27] MEDS: Lisinopril 2.5 MG Tablet PO (12:26)
--- NOTE | 2023-07-27 12:45 | CASEMGMT ---
Patient has order for discharge. Patient discharging on Eliquis. RN CM in to review needs at discharge with patient. Eliquis savings card provided to patient. Patient denies needs at discharge. Patient had no further questions or concerns.
--- NOTE | 2023-07-27 13:20 | PHA.DC.MC.R ---
Pharmacy [facility] has performed discharge medication reconciliation and counseling for this patient. The patient's discharge medication list was reviewed for discrepancies and discrepancies were resolved. The patient was counseled on the following discharge medications and changes in medications for homegoing were reviewed. The Reason for Use, instructions for use, and potential side effects were reviewed for all new medications. The patient's questions regarding all of their medications were answered. 1. Apixaban 5 mg PO BID 2. Lisinopril 2.5 mg PO daily 3. Clopidogrel 75 mg PO daily 4. atorvastatin 80 mg PO daily The patient and patient's daughter were able to verbally demonstrate an understanding of their discharge medications. Medications at Discharge Home Medications pantoprazole 20 mg tablet,delayed release 40 mg PO BID GERD 07/23/13 levothyroxine 75 mcg tablet 75 mcg PO DAILY THYROID 03/31/22 apixaban 5 mg tablet (Eliquis) 5 mg PO BID #60 tabs 07/27/23 atorvastatin 80 mg tablet 80 mg PO QHS #30 tabs 07/27/23 clopidogrel 75 mg tablet 75 mg PO DAILY #30 tabs 07/27/23 lisinopril 2.5 mg tablet 2.5 mg PO DAILY #30 tabs 07/27/23
--- NOTE | 2023-07-27 13:48 | PN.CARD_ITS ---
Subjective Subjective Denies any complaints. No chest pain. No shortness of breath. No lightheadedness or dizziness. Objective Data Vital Signs: Vital Signs Temp Pulse Resp BP Pulse Ox O2 Del Method 97.3 F L 50 L 15 130/70 H 97 Room Air 07/27/23 09:27 07/27/23 09:27 07/27/23 09:27 07/27/23 09:27 07/27/23 09:27 07/27/23 10:00 Oxygen Delivery Method Room Air Weight: 156 lb 15.506 oz Body Mass Index (BMI) 27.8 Intake & Output: Intake and Output for Last 24 Hours 07/25/23 07/26/23 07/27/23 23:59 23:59 23:59 Intake Total 2482.5 / 2482.5 2366.25 / 2366.25 1120 / 1120 Output Total 400 / 650 550 / 550 Balance 2082.5 / 1832.5 1816.25 / 1816.25 1120 / 1120 Lab / Micro Data 07/26/23 05:20 07/26/23 05:20 Rhythm Strip Rhythm Strip: Sinus Rhythm Rate: 90 Ectopy: None Cardiology Labs/Tests Rhythm: EKG: ECHO: Stress Test: Cardiac Cath: PCI: CT Surgery: Holter monitor: EPS: PPM: CXR: Chest CT Scan: Physical Exam Narrative Stable. Heart sounds 1 and 2 are normal. No murmurs or rubs are noted. Chest clear to auscultation bilaterally. Alert oriented x3. No ankle edema. Assessment & Plan Assessment/Plan (1) STEMI (ST elevation myocardial infarction): QUALIFIERS: Involved coronary artery: LAD coronary artery Qualified Code(s): I21.02 - ST elevation (STEMI) myocardial infarction involving left anterior descending coronary artery PLAN: Status post drug-eluting stent to the left anterior descending artery. Stable. Asymptomatic. Started on apixaban for possible LV apical thrombus. Discussed with patient. Risks benefits explained. She understand these and ag neto with the plan. (2) Coronary artery disease: PLAN: See #1 above. (3) Left ventricular systolic dysfunction (LVSD): PLAN: LVEF approximately 40%. Started on low-dose KAI inhibitor. Beta-blockers when blood pressure and heart rate allows.. PLAN: Plan May discharge home today. Follow-up as outpatient in 2 to 4 weeks.
[2023-07-27 15:19] VITALS: BP 143/81; PULSE 53; RESP 18; TEMP 36.6; O2SAT 99
== END 2023-07-27 15:36 | disposition home or self-care (01) | DRG 322 ==
LOC: ED 14:29 → ICU 14:42 → PCU 07-26 16:40
PROVIDERS: Student in an Organized Health Care Education/Training Program; Admitting Provider Family Medicine; Emergency Provider Emergency Medicine; PCP Internal Medicine; Referring Provider Specialist
DX: I21.02 ST elevation (STEMI) myocardial infarction involving left anterior descending coronary artery (principal); I51.3 Intracardiac thrombosis, not elsewhere classified; N18.30 Chronic kidney disease, stage 3 unspecified; E03.9 Hypothyroidism, unspecified; I25.10 Atherosclerotic heart disease of native coronary artery without angina pectoris; K21.9 Gastro-esophageal reflux disease without esophagitis; M54.9 Dorsalgia, unspecified; M54.2 Cervicalgia; R00.1 Bradycardia, unspecified; G89.29 Other chronic pain; R03.0 Elevated blood-pressure reading, without diagnosis of hypertension; R55 Syncope and collapse; Z79.890 Hormone replacement therapy; Z79.899 Other long term (current) drug therapy
CPT/HCPCS: 70450; 71045; 80048; 80053; 80061; 80076; 83690; 83735; 84484; 85025; 85610; 85730; 92941; 93005; 93306; 93454; 94668; 94762; 99285; C1874; J7030; J7040; J7050; Q9957; Q9967; A4216; C1725; C1769; C1887; C1894; C8929; C9606; J1327

== ENCOUNTER → 2023-08-13 | Outpatient (CLI) | payer MEDICARE, OTHER, SELFPAY ==
--- NOTE | 2023-08-13 10:26 | PCM.CR.HP2 ---
CR - History & Physical General Arrival date:: 08/13/23 Arrival time:: 10:26 Date of Referral:: 08/09/23 Date of CR Evaluation:: 08/13/23 Referring Physician: Dr. Bravo Primary Diagnosis: PCI with stent, MT-STEMI History of Present Cardiac Event Onset Date Acute Myocardial Infarction within 12 months:: Yes PTCA or coronary stenting:: Yes Vessel: LAD 07/24/23 Medications Ambulatory Orders Medication Instructions Recorded pantoprazole 20 mg tablet,delayed 40 mg PO BID GERD 07/23/13 release levothyroxine 75 mcg tablet 75 mcg PO DAILY THYROID 03/31/22 apixaban 5 mg tablet (Eliquis) 5 mg PO BID #180 tabs 08/09/23 atorvastatin 80 mg tablet 80 mg PO QHS #90 tabs 08/09/23 clopidogrel 75 mg tablet 75 mg PO DAILY #90 tabs 08/09/23 lisinopril 2.5 mg tablet 2.5 mg PO DAILY #90 tabs 08/09/23 Allergies Allergies No Known Allergies Allergy (Verified 08/09/23 09:43) Sleep Disorder Evaluation Hx of Sleep Apnea: No Do you snore loudly (louder than talking or can be heard through closed doors)?: No Do you often feel tired/ fatigued/ sleepy during daytime?: No Has anyone observed you stop breathing during sleep?: No History of Hypertension (for STOP score): No STOP Results: Negative Advanced Directives Advanced Directives Power of Process Equipment Operator: No Living Will: No Advance Directives Information Provided: No Advance Directives on File: No DNR Order?:: No Past Medical History Covid-19 Screening Physicial Symptoms Other Clinical Concerns Exposure Risk Pertinent Comorbidities 65 years or older:: Yes Has a serious heart condition:: Yes Past Medical Illness Medical History Atherosclerosis of coronary artery of [place] heart without angina pectoris Chronic neck and back pain CKD (chronic kidney disease), stage III GERD (gastroesophageal reflux disease) 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 STEMI (ST elevation myocardial infarction) Past Surgical History Surgical History History of back surgery History of coronary artery stent placement (07/24/23) Surgical History: noncontributory Family History Summary Family History Mother Cancer Uterine CA Father Heart disease Hypertension CAD (coronary artery disease) Myocardial infarction Sudden cardiac Social History Smoking History Smoking Status: Never smoker Alcohol Use Alcohol Usage: No Occupation Occupation (List type of work in comments):: Employed and Retired Hours worked per day:: 8 Hobbies, Recreation, Social Activities Hobbies: Walking and Other (bowling, movies) Recreational Activities: I am able to engage in all my recreational activities Social Environment Status Marital Status: Single Current Living Arrangements Living Environment:: Alone Children How many children do you have?: 1 Do any of your children live nearby?: Yes Safety Do you feel safe in your surroundings?: No Assistance Do you need any assistance at home?: no Review of Systems Review of Systems Hints Review of Present Symptoms: Reports Shortness of Breath with Exertion, Fatigue, Appetite - Normal, Appetite - Special Diet and Sleep - Normal; Denies Shortness of Breath at Rest, PVD, Operative Discomfort, Angina, Wound Healing, Dizziness/Lightheadedness, Heart Arrhythmia/Irregularities or Sexual Changes Pain Is Patient Pain Free?: No Pain Location: back Pain Level: 5/10 Risk Factor Assessment Chief Complaint Chief Complaint: PCI with coronary stent, MT-STEMI Vital Signs Blood Pressure: 143/63 Pulse Pulse Rate: 59 Stress Stress: Work-related Obesity Height: 5 ft 3 in Weight:: 153 lb Weight in Pounds: 153.0 lbs Body Mass Index (BMI): 27.1 Nutritional Referral for Obesity: No Physical Inactivity Physical Inactivity: Reg Exercise 30 min/day Risk Stratification Risk Guidelines: Lowest Risk: Risk Factor for Smoking, Moderate Risk: Risk Factor for Diabetes, Risk Factor for Obesity, Risk Factor for Hypertension, Risk Factor for Sedentary Lifestyle and Risk Factor for Depression and Highest Risk: Risk Factor for Dyslipidemia For Smoking Smoking Risk Guidelines For Dyslipidemia Dyslipidemia Risk Guidelines For Diabetes Mellitus Diabetes Risk Guidelines For Obesity/Overweight Obesity/Overweight Risk Guidelines For Hypertension Hypertension Risk Guidelines For Sedentary Lifestyle Sedentary Lifestyle Risk Guidelines For Depression Depression Risk Guidelines Family History Family History Mother Cancer Uterine CA Father Heart disease Hypertension CAD (coronary artery disease) Myocardial infarction Sudden cardiac Motivation Motivation to Participate On a scale of 1 to 10, how prepared are you to commit to attending program?: 10 What do you see as barriers to successfully being able to complete the program?: no What do you see as the benefits of succesfully completing the program? In other words, what do you hope to get out of participating in the program?: confidence, energy Are there issues you are dealing with that will interfere with completing the program?: no Do you have a spouse or signficant other, family or friends who will help support you to complete the program?: yes
[2023-08-13 10:34] VITALS: BP 143/63; PULSE 59
--- NOTE | 2023-08-13 10:34 | PCM.CR.ITP ---
Diagnosis General Information Admitting Diagnosis: PCI with coronary stent, VA-STEMI Personal Learning Style:: Audio/Visual Stage of change r/t lifestyle modifications:: Contemplation Gave educational material for:: Treating Heart Disease, How The Heart Works, What it means to have Heart Disease, How Coronary Artery Disease is Diagnosed, Heart Procedures, What Heart Medications Do, Risk Factors & Modifications, Living an Active Life, Nutrition, Emotions & Heart Disease, Stress Management & Relaxation and Sleep Disorders & Heart Disease Education/Goals Cardiac Rehabilitation Goals Personal Goals: Initial Assessment: Improve energy level, Get back to work, or to resume activities faster, Improve knowledge of cardiac disease, Improve muscle strength and endurance, Improve diet and eating habits (eat healthier) and Control risk factors (learn risk factor modification) Scale for measuring improvement of personal goals Diagnosis & Disease Process Outcomes/Goals: Pt IDs own risk factors & lifestyle modifications by Session 10, Verbalizes symptoms of angina & response by session 3., Pt independently manages and Other Additional Outcomes/Goals: Plan/Interventions: Assist Pt to ID & engage in lifestyle modification to reduce CVD risk, Instruct on individual risk factors, Review symptoms of angina & emergency actions, Review secondary diagnosis & identify educational needs. and Other see comment 30 day Reassessments:: Not Met 30 day Reassessments:: Not Met 30 day Reassessments:: Not Met 30 day Reassessments:: Not Met Final Reassessments:: Not Met Safety Referral to Physical Therapy: No Referral to [facility] Case Management: No Fall Risk Assessed:: Yes Assistive Devices:: None Exercise - Initial Assessment Visit Date of Eval: 08/13/23 (initial eval ) Mets: Pre-: >3 METS for 30 minutes by discharge, >5 METS for 30 minutes by discharge, >7 METS for 30 minutes by discharge and Unable to meet goal due to: (see comment below) Physician Prescribed Exercise Modalities: Treadmill, Rower, Airdyne, NuStep, SciFit and Lateral Check Grader Frequency: 3x/week for 12 weeks [36 sessions] Intensity: 60-80% of age predicted maximum heart rate reserve Duration: 30 - 45 minutes Target Heart Rate:: 90-112 Resting Blood Pressure: 143/63 EKG Type: SB with Twave abnormality Outcomes & Goals Goals:: Verbalizes understanding of THR, RPE & goal METS by session 6, Documents in home exercise log/reports 30 min aerobic 5 day/wk by DC, Demonstrates accurate pulse taking by DC and Other additional outcome/goals: see below Intervention & Plan Exercise Program Goals: Instruct on personal THR & RPE, Instruct on MET level & personal MET goal, Show patient to take own pulse /validate performance until accurate, Instruct on home exercise and Other additional plan/int Physical Activity Home Exercise Physical Activity - Home Exercise: Safe Exercise, Warm-up, Self-monitoring, Cool-Down, Home Exercise > 30 min Daily and Sitting Time <3 hours/daily Outcomes & Goals Outcomes/Goals: Demonstrates correct Warm-up/exercise Cool-Down (S3) if = 2.5 METs, Verbalizes symptoms of exercise intolerance by Session 3 (S3), Demonstrate safe equipment use (S3) & follows exercise prescrition (6) and Other: See below Intervention & Plan Plan/Intervention: Instruct warm-up & cool-down if exercising at > 2 METs, Instruct on symptoms of exercise intolerance & actions to take, Instruct & monitor on saf, Assess intial functional capacity & safety risk and Other See below Nutrition - Initial Assessment Program Goals Nutrition Program Goals Patient has diagnosis of Hyperlipidemia (ICD E78)?: Yes Visit Date of Eval: 08/13/23 (initial eval ) Cholesterol/Lipids (Other Core Measures) Determine presence & major risk factors that modify LDL goal: Hypertension or hypertensive medication, Low HDL cholesterol <40 mg/dL*, Family history of premature CHD in Male < 55 years: female <65 yearsFa and Age men > 45 years; women >/= 55 years Outcomes/Goals: Pt IDs own risk factors & lifestyle modifications by Session 10, Verbalizes symptoms of angina & response by session 3., Pt independently manages and Other Additional Outcomes/Goals: Intervention/Plan: Advocate for lipid panel cholesterol medication if applicable, Instruct on personal lipid levels & lipid goals/NCEP guidelines, Instruct on cholesterol and Other additional plan/int Referral to dietitian:: No (pt declines) Diabetes (Other Core Measures) Diabetes Type: Not Applicable Weight Mgt (Other Care) Height: 5 ft 3 in Weight:: 153 lb BMI: 27.1 Diagnosis Overweight/Obesity BMI> 30% ICD-10 E66: No Diagnosis High BMI/Morbid Obesity BMI> 35% ICD-10 Z68: No Outcomes/Goals: Pt sets, maintains & shows weight loss goal & trend during rehab and Other additional outcomes/goals Intervention/Plan: Instruct on ideal BMI & set weight loss goal w/patient, Assist pt to ID & incorporate diet changes for weight loss by S9, Refer to Structured Weight Loss program as appropriate, Encourage goal of using 250-300dcal per session for weight loss and Other additional plan/interventions Healthy Eating Habits Will attend diet classes:: Yes Outcomes/Goals:: Consume diet rich in vegs,fruits,whole grain/high fiber,fish,lean meat, Limit sat/trans fats,cholesterol & added salts & sugars and Other additional outcome/goals: Intervention/Plan:: Assess current eating habits and Other Additional plan/interventions Education Gave educational materials for:: Signs & symptoms of hypoglycemia, Signs & symptoms of hyperglycemia, Relate diabetes to coronary artery disease and Healthy eating Core - Initial Assessment Visit Date of Eval: 08/13/23 (initial eval ) Medication Compliance Preventative Medication(s):: KAI inhibitor, Clopidogrel/P2Y12 inhibit, Statin/lipid and Eliquis H/O mental health issues: depression, anxiety, or addiction?: No Doesn?t believe in the benefits of treatment?: No Believes medications are unnecessary or harmful?: No Has a concern about medication side effects?: No Expresses concern over the cost of medications?: No Outcomes/Goals: Verbalizes medications,desired effect & common side effects @ DC, Pt self-reports following medication regimen, Keeps card in wallet w/medications listed by DC and Other additional outcome/goals: Interventions/plans: Instruct on medication effects & side effects, Review medication list w/patient every two weeks, Instruct importance of taking meds as ordered & assist problem solving and Other additional Tobacco Use Tobacco Use: Non-smoker Hypertension Hypertension Diagnosis:: Not Applicable Resting Blood Pressure:: 143/63 [place] [employer] Hypertension Guidelines Outcomes/Goals: Able to verbalize/achieve optimal blood pressure <130/80, Incorporates diet changes & exercise for blood pressure control by DC and Other additional outcomes/goals Interventions/plan: Instruct on optimal blood pressure, hypertension & medications, Instruct on effects of sodium, alcohol, stress, exercise &hypertension and Other additional plan/interventions Tobacco Cessation Referral Smoking Cessation Referral:: No Individual Education/Counseling:: No Education Schedule Given:: Yes Psychosocial - Initial Assess VIsit Date of Eval: 08/13/23 (initial eval ) History of previous Mental disease:: No Target Goals Target Goals Outcomes/Goals: See list Psychosocial Outcomes/Goals:: ID's personal stressors & 2 strategies to manage stress by discharge and Other Additional outcome/goals: Intervention/Plan: See List Interventions/Plan:: Assess stressors,coping strategies & signs of derpression on admission, Instruct/assist pt to develop coping & personal stress Mgt strategies, Refer to Behavioral Health if appropriate, Refer to Physician if appropriate, Instruct patient to recognize signs & symptoms of depression, Instruct patient to recog and Other additional plan/intervention Patient Health Questionnaire PHQ-9 Screening Initial Assessment: 1. Little interest or pleasure in doing things: More than half the days 2. Feeling down, depressed, or hopeless: Several days 3. Trouble falling or staying asleep, or sleeping too much: Not at all 4. Feeling tired or having little energy: Nearly every day 5. Poor appetite or overeating: Not at all 6. Feeling bad about yourself -- or that you are a failure or have let yourself or your family down: Several days 7. Trouble concentrating on things, such as reading the newspaper or watching television: Not at all 8. Moving or speaking so slowly that other people could have noticed. Or the opposite - being so fidgety or restless that you have been moving around a lot more than usual: Not at all 9. Thoughts that you would be better off , or of hurting yourself in some way: Not at all How difficult have these problems made it for you to do your work, take care of things at home, or get along with other people?: Somewhat difficult Total Score: 7 THAIS-Q SV Test Statements CAD is a disease of the arteries in the heart: False Examples of risk factors for heart disease: True Angina is chest pain or discomfort: I Don't Know The benefits of resistance training include: I Don't Know Eating more meat and dairy products: False Anti-platelet medications such as aspirin are important: True The only effective way to manage stress: False An exercise warm-up slowly increases heart rate: True Prepared, processed foods usually have high sodium: True Depression is common after a heart attack: I Don't Know The statin medications lower cholesterol: True To control blood pressure, lower the amount of sodium: True If someone gets chest discomfort during walking: False Transfats are partially hydrogenated vegetable oils: True Sleep apnea that is not treated increases the risk: I Don't Know To control cholesterol, one should become a vegetarian: I Don't Know Someone knows if he/she is exercising at the right level: True Diabetes cannot be prevented with exercise & health eating: True Stress is a large risk for heart attack: True A diet that can help lower blood pressure is rich in: True Total Score Total Correct Responses: 14 Self-Efficacy 6-Item Scale Initial Assessment: We would like to know how confident you are in doing certain activities. Please select your confidence level for: Fatigue Select Number: 5 Physical Discomfort or Pain Select Number: 8 Emotional Distress Select Number: 7 Other Symptoms or Health Problems Select Number: 9 Different Tasks and Activities Select Number: 8 Medication Select Number: 10 Total Score:: 7 Nutrition Survey Nutrition Survey Instructions Scoring Instructions Nutrition Survey Initial: Have you lost >10 lbs over the past 2 months without trying?: No Are you following a special diet at home for diabetes, low fat, or low salt?: Yes Are you interested in meeting with a dietitian for help understanding your diet?: No Do you eat less than 3 meals a day?: No Do you eat fatty meats (vail, sausage, ribs, etc), fried foods, desserts, large amounts of salad dressings, margarine, butter, or cheese most days?: No Do you have food allergies? [Enter types in comment field]: No Do you eat in restaurants more than 3 times a week?: No Do you season food with salt, seasoning salt, or garlic salt?: No Do you used canned, boxed, frozen meals, or soups, seasoning packets?: Yes Total Score:: 2 Exercise - Final/Discharge Physician Prescribed Exercise Modalities: Treadmill, Rower, Airdyne, NuStep, SciFit and Lateral Check Grader Frequency: 3x/week for 12 weeks [36 sessions] Intensity: 60-80% of age predicted maximum heart rate reserve Target Heart Rate:: 90-112 Nutrition - 30-Day Assessment Weight Mgt (Other Care) Height: 5 ft 3 in Weight:: 153 lb BMI: 27.1 Nutrition - 60-Day Assessment Weight Mgt (Other Care) Height: 5 ft 3 in Weight:: 153 lb BMI: 27.1 Core - Final Assessment Hypertension Resting Blood Pressure:: 143/63 [place] [employer] Hypertension Guidelines Core - 60-Day Assessment Hypertension Resting Blood Pressure:: 143/63 [place] [employer] Hypertension Guidelines Psychosocial - 30-Day Assess Target Goals Target Goals Psychosocial - 60-Day Assess Target Goals Target Goals Psychosocial - 90-Day Assess Target Goals Target Goals Psychosocial - Final Assessmen Target Goals Target Goals Nutrition - 90-Day Assessment Weight Mgt (Other Care) Height: 5 ft 3 in Weight:: 153 lb BMI: 27.1 Nutrition - Final Assessment Program Goals Patient has diagnosis of Hyperlipidemia (ICD E78)?: Yes Weight Mgt (Other Care) Height: 5 ft 3 in Weight:: 153 lb BMI: 27.1
[2023-08-13 10:41] VITALS: BP 143/63
[2023-08-13 11:00] VITALS: BMI 27.1
[2023-08-13 11:26] VITALS: BMI 27.1
== END | disposition home or self-care (01) ==
LOC: CR 10:19
PROVIDERS: PCP Internal Medicine; Referring Provider Specialist; Visit Provider Specialist
DX: Z95.5 Presence of coronary angioplasty implant and graft (principal); I25.2 Old myocardial infarction

== ENCOUNTER 2023-09-01 13:00 | Outpatient (RCR) | payer MEDICARE, OTHER, SELFPAY ==
[2023-08-13 11:00] VITALS: BMI 27.1
== END 2023-09-02 23:59 ==
LOC: CR 13:00
PROVIDERS: PCP Internal Medicine; Referring Provider Specialist; Visit Provider Specialist
DX: I25.10 Atherosclerotic heart disease of native coronary artery without angina pectoris (principal); Z95.5 Presence of coronary angioplasty implant and graft
CPT/HCPCS: 93798

== ENCOUNTER 2023-10-01 13:00 | Outpatient (RCR) | payer MEDICARE, OTHER, SELFPAY ==
[2023-08-13 11:00] VITALS: BMI 27.1
--- NOTE | 2023-09-10 08:39 | CR.ITP_ITS ---
Exercise - Initial Assessment Visit Session #:: 9 Nutrition - Initial Assessment Weight Mgt (Other Care) Height: 5 ft 3 in Weight:: 150 lb BMI: 26.5 Psychosocial - Initial Assess Target Goals Target Goals Patient Health Questionnaire PHQ-9 Screening 30-Day Re-eval Assessment: 1. Little interest or pleasure in doing things: More than half the days 2. Feeling down, depressed, or hopeless: Several days 3. Trouble falling or staying asleep, or sleeping too much: Not at all 4. Feeling tired or having little energy: Nearly every day 5. Poor appetite or overeating: Not at all 6. Feeling bad about yourself -- or that you are a failure or have let yourself or your family down: Several days 7. Trouble concentrating on things, such as reading the newspaper or watching television: Not at all 8. Moving or speaking so slowly that other people could have noticed. Or the opposite - being so fidgety or restless that you have been moving around a lot more than usual: Not at all 9. Thoughts that you would be better off , or of hurting yourself in some way: Not at all How difficult have these problems made it for you to do your work, take care of things at home, or get along with other people?: Somewhat difficult Total Score: 7 Self-Efficacy 6-Item Scale 30-Day Re-eval Assessment: We would like to know how confident you are in doing certain activities. Please select your confidence level for: Fatigue Select Number: 5 Physical Discomfort or Pain Select Number: 8 Emotional Distress Select Number: 7 Other Symptoms or Health Problems Select Number: 9 Different Tasks and Activities Select Number: 8 Medication Select Number: 10 Total Score:: 7 Nutrition Survey Nutrition Survey Instructions Scoring Instructions Exercise - 30-day Assessment Visit Date of Eval: 09/10/23 Session #:: 9 Physician Prescribed Exercise Modalities: Treadmill, Airdyne and NuStep Frequency: 3x/week for 12 weeks [36 sessions] Intensity: 60-80% of age predicted maximum heart rate reserve Duration: 30 - 45 minutes Current METSs:: 3 Target Heart Rate:: 90-112 Current RPE:: 10-12 Maximum Excercise HR:: 106 Resting Blood Pressure: 122/70 Maximum Exercise Blood Pressure: 132/70 EKG Type: SB to ST with occas PAC Outcomes & Goals Goals:: Verbalizes understanding of THR, RPE & goal METS by session 6, Documents in home exercise log/reports 30 min aerobic 5 day/wk by DC, Demonstrates accurate pulse taking by DC and Other additional outcome/goals: see below Intervention & Plan Exercise Program Goals: Instruct on personal THR & RPE, Instruct on MET level & personal MET goal, Show patient to take own pulse /validate performance until accurate, Instruct on home exercise and Other additional plan/int 30-day Reassessments 30 day Reassessments:: Progressing Reassessment Notes & Comments:: RPE explained Physical Activity Home Exercise Physical Activity - Home Exercise: Safe Exercise, Warm-up, Self-monitoring, Cool-Down, Home Exercise > 30 min Daily and Sitting Time <3 hours/daily Outcomes & Goals Outcomes/Goals: Demonstrates correct Warm-up/exercise Cool-Down (S3) if = 2.5 METs, Verbalizes symptoms of exercise intolerance by Session 3 (S3), Demonstrate safe equipment use (S3) & follows exercise prescrition (6) and Other: See below Intervention & Plan Plan/Intervention: Instruct warm-up & cool-down if exercising at > 2 METs, Instruct on symptoms of exercise intolerance & actions to take, Instruct & monitor on saf, Assess intial functional capacity & safety risk and Other See below 30-day Reassessments 30 day Reassessments:: Progressing Reassessment Notes & Comments:: warm up encouraged Nutrition - 30-Day Assessment Program Goals Nutrition Program Goals Patient has diagnosis of Hyperlipidemia (ICD E78)?: Yes Visit Date of Eval: 09/10/23 Session #:: 9 Cholesterol/Lipids (Other Core Measures) Determine presence & major risk factors that modify LDL goal: Cigarette smoking, Hypertension or hypertensive medication, Low HDL cholesterol <40 mg/dL*, Family history of premature CHD in Male < 55 years: female <65 yearsFa and Age men > 45 years; women >/= 55 years Outcomes/Goals: Pt IDs own risk factors & lifestyle modifications by Session 10, Verbalizes symptoms of angina & response by session 3., Pt independently manages and Other Additional Outcomes/Goals: Intervention/Plan: Advocate for lipid panel cholesterol medication if applicable, Instruct on personal lipid levels & lipid goals/NCEP guidelines, Instruct on cholesterol and Other additional plan/int Referral to dietitian:: No (declines) 30-day Reassessments:: Progressing Reassessment Notes & Comments:: pt to attend nutrition class Diabetes (Other Core Measures) Diabetes Type: Not Applicable Weight Mgt (Other Care) Height: 5 ft 3 in Weight:: 150 lb BMI: 26.5 Diagnosis Overweight/Obesity BMI> 30% ICD-10 E66: No Diagnosis High BMI/Morbid Obesity BMI> 35% ICD-10 Z68: No Outcomes/Goals: Pt sets, maintains & shows weight loss goal & trend during rehab and Other additional outcomes/goals Intervention/Plan: Instruct on ideal BMI & set weight loss goal w/patient, Assist pt to ID & incorporate diet changes for weight loss by S9, Refer to Structured Weight Loss program as appropriate, Encourage goal of using 250- 300dcal per session for weight loss and Other additional plan/interventions 30 day Reassessments:: Progressing Reassessment Notes & Comments:: pt to attend nutrition class Healthy Eating Habits Will attend diet classes:: Yes Outcomes/Goals:: Consume diet rich in vegs,fruits,whole grain/high fiber,fish,lean meat, Limit sat/trans fats,cholesterol & added salts & sugars and Other additional outcome/goals: Intervention/Plan:: Assess current eating habits and Other Additional plan/interventions 30-day Reassessments:: Progressing Reassessment Notes & Comments:: pt to attend nutrition class Education Gave educational materials for:: Signs & symptoms of hypoglycemia, Signs & symptoms of hyperglycemia, Relate diabetes to coronary artery disease and Healthy eating Nutrition - 60-Day Assessment Weight Mgt (Other Care) Height: 5 ft 3 in Weight:: 150 lb BMI: 26.5 Core - 30-Day Assessment Visit Date of Eval: 09/10/23 Session #:: 9 Medication Compliance Preventative Medication(s):: KAI inhibitor, Clopidogrel/P2Y12 inhibit, Statin/l ipid and Eliquis H/O mental health issues: depression, anxiety, or addiction?: No Doesn?t believe in the benefits of treatment?: No Believes medications are unnecessary or harmful?: No Has a concern about medication side effects?: No Expresses concern over the cost of medications?: No Outcomes/Goals: Verbalizes medications,desired effect & common side effects @ DC, Pt self-reports following medication regimen, Keeps card in wallet w/medications listed by DC and Other additional outcome/goals: Interventions/plans: Instruct on medication effects & side effects, Review medication list w/patient every two weeks, Instruct importance of taking meds as ordered & assist problem solving and Other additional 30-day Reassessments:: Progressing Reassessment Notes & Comments:: pt encouraged to take her meds Tobacco Use Tobacco Use: Non-smoker Hypertension Hypertension Diagnosis:: Not Applicable Resting Blood Pressure:: 132/70 [place] [employer] Hypertension Guidelines Peak Exercise Blood Pressure:: 132/70 Outcomes/Goals: Able to verbalize/achieve optimal blood pressure <130/80, Incorporates diet changes & exercise for blood pressure control by DC and Other additional outcomes/goals Interventions/plan: Instruct on optimal blood pressure, hypertension & medications, Instruct on effects of sodium, alcohol, stress, exercise &hypertension and Other additional plan/interventions 30 day Reassessments:: Met Tobacco Cessation Referral Smoking Cessation Referral:: No Individual Education/Counseling:: No Education Schedule Given:: Yes Psychosocial - 30-Day Assess VIsit Date of Eval: 09/10/23 Session #:: 9 History of previous Mental disease:: No Target Goals Target Goals Psychosocial - 60-Day Assess Target Goals Target Goals Psychosocial - 90-Day Assess Target Goals Target Goals Psychosocial - Final Assessmen Target Goals Target Goals Nutrition - 90-Day Assessment Weight Mgt (Other Care) Height: 5 ft 3 in Weight:: 150 lb BMI: 26.5 Nutrition - Final Assessment Weight Mgt (Other Care) Height: 5 ft 3 in Weight:: 150 lb BMI: 26.5
[2023-09-10 08:51] VITALS: BP 122/70; BP 132/70; BMI 26.5
== END 2023-10-03 23:59 ==
LOC: CR 13:00
PROVIDERS: PCP Internal Medicine; Referring Provider Specialist; Visit Provider Specialist
DX: I25.10 Atherosclerotic heart disease of native coronary artery without angina pectoris (principal); Z95.5 Presence of coronary angioplasty implant and graft
CPT/HCPCS: 93798

== ENCOUNTER → 2023-10-06 | Outpatient (CLI) | payer MEDICARE, OTHER, SELFPAY ==
[2023-08-13 11:00] VITALS: BMI 27.1
[2023-09-10 08:51] VITALS: BMI 26.5
--- NOTE | 2023-10-06 09:39 | ECHOLC_ITS ---
Reason For Study: Evaluate for Possible LV Thrombus, Apical Akinesis Procedure This was a limited 2D transthoracic echocardiogram. Contrast injection was performed. Exam performed in department. Left Ventricle Normal size and thickness. The left ventricular ejection fraction is 60 %. No regional wall motion abnormalities noted. Right Ventricle Normal right ventricle. Atria The left and right atria are normal. Mitral Valve Mild (1+) mitral valve insufficiency. Tricuspid Valve Normal tricuspid valve. Aortic Valve Trisinus/trileaflet aortic valve. Pulmonic Valve The pulmonic valve is not well visualized. Great Vessels Normal sized aortic root. Pericardium/Pleural No pericardial effusion. Medication 22 gauge I.V. with prn adaptor inserted into right arm. Diluted definity 3ml given slow IV push to enhance endocardial definition. MMode/2D Measurements & Calculations LVIDd: 5.0 cm IVSd: 0.82 cm LA dimension: 4.0 cm LVIDs: 3.3 cm LVPWd: 0.78 cm FS: 34.5 % LAV(MOD-bp): 58.4 ml LVAd ap4: 27.6 cm2 SV(MOD-sp4): 49.9 ml LAV(MOD-bp) Indexed: 34.9 ml/m2 LVLd ap4: 7.1 cm LAV(MOD-sp2): 55.1 ml EDV(MOD-sp4): 88.0 ml LAV(MOD-sp4): 55.9 ml EDV(sp4-el): 90.7 ml LVAs ap4: 16.2 cm2 LVLs ap4: 5.8 cm ESV(MOD-sp4): 38.1 ml ESV(sp4-el): 38.0 ml EF(MOD-sp4): 56.7 % EF(sp4-el): 58.1 % SV(sp4-el): 52.7 ml LA A4 area: 19.5 cm2 RA A4 area: 16.1 cm2 Time Measurements MV dec time: 0.19 sec Doppler Measurements & Calculations MV E max kvng: 71.7 cm/sec Lat Peak E' Kvng: 12.3 cm/sec Med Peak E' Kvng: 6.9 cm/sec MV A max kvng: 72.2 cm/sec E/E' lat: 5.8 E/E' med: 10.3 MV E/A: 0.99 MR max kvng: 436.2 cm/sec MV dec slope: 384.8 cm/sec2 MR max P.1 mmHg ECHO/Echo Limited w/Contrast Interpretation Summary The left ventricular ejection fraction is 60 %. No LV thrombus noted. Mild (1+) mitral valve insufficiency. Ordering Physician: Ruperto Burleson Referring Physician: Ruperto Burleson Performed By: Iftikhar Mckenna RCS
== END | disposition home or self-care (01) ==
LOC: CVS 09:39
PROVIDERS: PCP Internal Medicine; Referring Provider Nurse Practitioner Family; Visit Provider Nurse Practitioner Family
DX: I25.10 Atherosclerotic heart disease of native coronary artery without angina pectoris (principal)
CPT/HCPCS: 93308; Q9957; A4216; C8924

== ENCOUNTER 2023-11-03 13:00 | Outpatient (RCR) | payer MEDICARE, OTHER, SELFPAY ==
[2023-09-10 08:51] VITALS: BMI 26.5
[2023-10-04 00:17] VITALS: BP 122/70; BP 132/70
== END 2023-11-03 23:59 ==
LOC: CR 13:00
PROVIDERS: PCP Internal Medicine; Referring Provider Specialist; Visit Provider Specialist
DX: I25.10 Atherosclerotic heart disease of native coronary artery without angina pectoris (principal); Z95.5 Presence of coronary angioplasty implant and graft; I21.3 ST elevation (STEMI) myocardial infarction of unspecified site; I21.9 Acute myocardial infarction, unspecified
CPT/HCPCS: 93798

== ENCOUNTER 2023-11-19 13:00 | Outpatient (RCR) | payer MEDICARE, OTHER, SELFPAY ==
[2023-09-10 08:51] VITALS: BMI 26.5
[2023-11-04 00:14] VITALS: BP 122/70; BP 132/70
--- NOTE | 2023-11-12 09:30 | CR.ITP_ITS ---
Nutrition - Initial Assessment Weight Mgt (Other Care) Height: 5 ft 3 in Weight:: 147 lb 12.8 oz BMI: 26.2 Psychosocial - Initial Assess Target Goals Target Goals Patient Health Questionnaire PHQ-9 Screening 90-Day Re-eval Assessment: 1. Little interest or pleasure in doing things: More than half the days 2. Feeling down, depressed, or hopeless: Several days 3. Trouble falling or staying asleep, or sleeping too much: Not at all 4. Feeling tired or having little energy: Nearly every day 5. Poor appetite or overeating: Not at all 6. Feeling bad about yourself -- or that you are a failure or have let yourself or your family down: Several days 7. Trouble concentrating on things, such as reading the newspaper or watching television: Not at all 8. Moving or speaking so slowly that other people could have noticed. Or the opposite - being so fidgety or restless that you have been moving around a lot more than usual: Not at all 9. Thoughts that you would be better off , or of hurting yourself in some way: Not at all How difficult have these problems made it for you to do your work, take care of things at home, or get along with other people?: Somewhat difficult Total Score: 7 Self-Efficacy 6-Item Scale 90-Day Re-eval Assessment: We would like to know how confident you are in doing certain activities. Please select your confidence level for: Fatigue Select Number: 5 Physical Discomfort or Pain Select Number: 8 Emotional Distress Select Number: 7 Other Symptoms or Health Problems Select Number: 9 Different Tasks and Activities Select Number: 8 Medication Select Number: 10 Total Score:: 7 Nutrition Survey Nutrition Survey Instructions Scoring Instructions Exercise - 90-day Assessment Visit Date of Eval: 11/12/23 Session #:: 33 Physician Prescribed Exercise Modalities: Treadmill, Airdyne and NuStep Frequency: 3x/week for 12 weeks [36 sessions] Intensity: 60-80% of age predicted maximum heart rate reserve Duration: 30 - 45 minutes Current METSs:: 4.5 Target Heart Rate:: 112-128 Current RPE:: 12-13 Maximum Excercise HR:: 114 Resting Blood Pressure: 124/62 Maximum Exercise Blood Pressure: 142/60 EKG Type: NSR to ST with occas pac/pvc Outcomes & Goals Goals:: Verbalizes understanding of THR, RPE & goal METS by session 6, Documents in home exercise log/reports 30 min aerobic 5 day/wk by DC, Demonstrates accurate pulse taking by DC and Other additional outcome/goals: see below Intervention & Plan Exercise Program Goals: Instruct on personal THR & RPE, Instruct on MET level & personal MET goal, Show patient to take own pulse /validate performance until accurate, Instruct on home exercise and Other additional plan/int 30-day Reassessments 30 day Reassessments:: Met Physical Activity Home Exercise Physical Activity - Home Exercise: Safe Exercise, Warm-up, Self-monitoring, Cool-Down, Home Exercise > 30 min Daily and Sitting Time <3 hours/daily Outcomes & Goals Outcomes/Goals: Demonstrates correct Warm-up/exercise Cool-Down (S3) if = 2.5 METs, Verbalizes symptoms of exercise intolerance by Session 3 (S3), Demonstrate safe equipment use (S3) & follows exercise prescrition (6) and Other: See below Intervention & Plan Plan/Intervention: Instruct warm-up & cool-down if exercising at > 2 METs, Instruct on symptoms of exercise intolerance & actions to take, Instruct & monitor on saf, Assess intial functional capacity & safety risk and Other See below 30-day Reassessments 30 day Reassessments:: Met Nutrition - 30-Day Assessment Weight Mgt (Other Care) Height: 5 ft 3 in Weight:: 147 lb 12.8 oz BMI: 26.2 Nutrition - 60-Day Assessment Weight Mgt (Other Care) Height: 5 ft 3 in Weight:: 147 lb 12.8 oz BMI: 26.2 Core - 90 Day Assessment Visit Date of Eval: 11/12/23 Session #:: 33 Medication Compliance Preventative Medication(s):: KAI inhibitor, Clopidogrel/P2Y12 inhibit, Statin/lipid and Eliquis H/O mental health issues: depression, anxiety, or addiction?: No Doesn?t believe in the benefits of treatment?: No Believes medications are unnecessary or harmful?: No Has a concern about medication side effects?: No Expresses concern over the cost of medications?: No Outcomes/Goals: Verbalizes medications,desired effect & common side effects @ DC, Pt self-reports following medication regimen, Keeps card in wallet w/medications listed by DC and Other additional outcome/goals: Interventions/plans: Instruct on medication effects & side effects, Review medication list w/patient every two weeks, Instruct importance of taking meds as ordered & assist problem solving and Other additional 30-day Reassessments:: Met Tobacco Use Tobacco Use: Non-smoker Hypertension Hypertension Diagnosis:: Not Applicable Resting Blood Pressure:: 124/62 [place] [employer] Hypertension Guidelines Peak Exercise Blood Pressure:: 142/60 Outcomes/Goals: Able to verbalize/achieve optimal blood pressure <130/80, Incorporates diet changes & exercise for blood pressure control by DC and Other additional outcomes/goals Interventions/plan: Instruct on optimal blood pressure, hypertension & medications, Instruct on effects of sodium, alcohol, stress, exercise &hypertension and Other additional plan/interventions Tobacco Cessation Referral Smoking Cessation Referral:: No Individual Education/Counseling:: No Education Schedule Given:: Yes Psychosocial - 30-Day Assess Target Goals Target Goals Psychosocial - 60-Day Assess Target Goals Target Goals Psychosocial - 90-Day Assess VIsit Date of Eval: 11/12/23 Session #:: 33 History of previous Mental disease:: No Target Goals Target Goals Outcomes/Goals: See list Psychosocial Outcomes/Goals:: ID's personal stressors & 2 strategies to manage stress by discharge and Other Additional outcome/goals: Intervention/Plan: See List Interventions/Plan:: Assess stressors,coping strategies & signs of derpression on admission, Instruct/assist pt to develop coping & personal stress Mgt strategies, Refer to Behavioral Health if appropriate, Refer to Physician if appropriate, Instruct patient to recognize signs & symptoms of depression, Instruct patient to recog and Other additional plan/intervention 30-day Reassessments: 30 day Reassessments:: Met Psychosocial - Final Assessmen Target Goals Target Goals Nutrition - 90-Day Assessment Program Goals Nutrition Program Goals Patient has diagnosis of Hyperlipidemia (ICD E78)?: Yes Visit Date of Eval: 11/12/23 Session #:: 33 Cholesterol/Lipids (Other Core Measures) Determine presence & major risk factors that modify LDL goal: Hypertension or hypertensive medication, Low HDL cholesterol <40 mg/dL*, Family history of premature CHD in Male < 55 years: female <65 yearsFa and Age men > 45 years; women >/= 55 years Outcomes/Goals: Pt IDs own risk factors & lifestyle modifications by Session 10, Verbalizes symptoms of angina & response by session 3., Pt independently manages and Other Additional Outcomes/Goals: Intervention/Plan: Advocate for lipid panel cholesterol medication if applicable , Instruct on personal lipid levels & lipid goals/NCEP guidelines, Instruct on cholesterol and Other additional plan/int 30-day Reassessments:: Met Diabetes (Other Core Measures) Diabetes Type: Not Applicable Weight Mgt (Other Care) Height: 5 ft 3 in Weight:: 147 lb 12.8 oz BMI: 26.2 Diagnosis Overweight/Obesity BMI> 30% ICD-10 E66: No Diagnosis High BMI/Morbid Obesity BMI> 35% ICD-10 Z68: No Outcomes/Goals: Pt sets, maintains & shows weight loss goal & trend during rehab and Other additional outcomes/goals Intervention/Plan: Instruct on ideal BMI & set weight loss goal w/patient, Assist pt to ID & incorporate diet changes for weight loss by S9, Refer to Structured Weight Loss program as appropriate, Encourage goal of using 250- 300dcal per session for weight loss and Other additional plan/interventions 30 day Reassessments:: Met Healthy Eating Habits Will attend diet classes:: Yes Outcomes/Goals:: Consume diet rich in vegs,fruits,whole grain/high fiber,fish,lean meat, Limit sat/trans fats,cholesterol & added salts & sugars and Other additional outcome/goals: Intervention/Plan:: Assess current eating habits and Other Additional plan/interventions 30-day Reassessments:: Met Education Gave educational materials for:: Signs & symptoms of hypoglycemia, Signs & symptoms of hyperglycemia, Relate diabetes to coronary artery disease and Healthy eating Nutrition - Final Assessment Weight Mgt (Other Care) Height: 5 ft 3 in Weight:: 147 lb 12.8 oz BMI: 26.2
[2023-11-12 09:37] VITALS: BP 124/62; BMI 26.2
== END 2023-12-02 23:59 ==
LOC: CR 13:00
PROVIDERS: PCP Internal Medicine; Referring Provider Specialist; Visit Provider Specialist
DX: I25.10 Atherosclerotic heart disease of native coronary artery without angina pectoris (principal); Z95.5 Presence of coronary angioplasty implant and graft
CPT/HCPCS: 93798

== ENCOUNTER 2024-06-01 16:42 | Outpatient (RCR) | payer MEDICARE, OTHER, SELFPAY ==
[2023-11-12 09:37] VITALS: BMI 26.2
--- NOTE | 2024-06-02 09:08 | HP.PTEVAL ---
Patient's Visit Information Visit Information Visit Information: RAY BURGOS is a 69 year old F referred to Physical Therapy by Dr. Fidel Sewell MD with a diagnosis of RADICULOPATHY ,LUMBAR. Date of Evaluation: 06/01/24 Physical Therapist: Reece Martin, PT, Cert MDT, OCS Visit Plan Frequency: 2x /Week Duration: 4 Weeks Plan: PT INTERVENTIONS DLS ,POSTURAL EX'S ,BLE FLEXABILITY , AND ACTIVITY MODIFICATION Subjective Subjective: This 69 y/o female presents to physical therapy with lumbar radiculopathy . Patient has had lumbar pain many years . Patient underwent s/p lumbar discectomy L4-[address] Olivas. Patient pain return intermittent for several years then past 3 months pain worse. Patient seen DR Sewell x-rays showed diffuse mild intervertebral disc space narrowing with small osteophytes most marked at L2-3 and L4-5. Patient pain located lumbar no radicular symptoms occasionally right leg. Aggravating sitting ,elvatating from chair . Alleviating walking . Standing okay. Coughing/sneezing-.Bowel/bladder -. Denies paresthesia/tingling . Patient sleeping good. Patient wants MRI but needs PT . 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 Back: Pain Intensity (Out of 10): 2 Pain Intensity Range: 10 Objective Objective: POSTURE: mild forward posture PALAPTION: unremarkable GAIT: reciprocal pattern NEURO: denies paresthesia/tingling ,reflexes L3-4,L4-5,L5-S1 3/3 SYMMETRIES: align FLEXABILITY: hamstrings min loss LUMBAR ROM: flexion mod loss ,extension mod loss ,side glides min loss MMT: quads/hams/hip 4/5 ,ankle 4/5 Special Tests L/S Slump test left side: Negative L/S Slump test right side: Negative L/S Left Straight Leg Raise: Negative L/S Right Straight Leg Raise: Negative Lumbar Standing: Flexion - Mechanical Response: No effect Lumbar Standing: Flexion - Symptoms During Testing: No effect Lumbar Standing: Flexion - Symptoms After Testing: No effect Lumbar Standing: Extension - Mechanical Response: No effect Lumbar Standing: Extension - Symptoms During Testing: Increases Lumbar Standing: Extension - Symptoms After Testing: No worse Lumbar Standing: Right Side Glides - Mechanical Response: No effect Lumbar Standing: Right Side [place] - Symptoms During Testing: No effect Lumbar Standing: Right Side [place] - Symptoms After Testing: No effect Lumbar Standing: Left Side [place] - Mechanical Response: No effect Lumbar Standing: Left Side [place] - Symptoms During Testing: No effect Lumbar Standing: Left Side [place] - Symptoms After Testing: No effect Lumbar Lying: Flexion - Mechanical Response: No effect Lumbar Lying: Flexion - Symptoms During Testing: No effect Lumbar Lying: Flexion - Symptoms After Testing: No effect Comments:: tight Lumbar Lying: Extension - Mechanical Response: No effect Lumbar Lying: Extension - Symptoms During Testing: No effect Lumbar Lying: Extension - Symptoms After Testing: No effect Comments:: tight Balance/Special Test Scores Oswestry Low Back Score: 17 Goals Goal 1:: Patient to be I with HEP lumbar spine Goal Time Frame: 4-6 Weeks Goal 2:: Patient to improve lumbar ROM for function of recovery to lift for ADL Goal Time Frame: 4-6 Weeks Goal 3:: Patient to improve back oswestry score by 5 points or > to improve QOL and function Goal Time Frame: 4-6 Weeks Goal 4:: Patient to demonstrate 60% improvement with less pain and improved function Goal Time Frame: 4-6 Weeks Rehabilitation Potential Physical Therapy Diagnosis: This patient has lumbar radiculopathy with h/o lumbar discectomy 1997 with pain with motion testing and positioning ,affects ADLS and housework tasks thus benefit from skilled PT Rehabilitation Potential: Good Anticipated Interventions Patient/Client Instruction: Educate patient on: Condition and Plan of Care For the Purpose of:: To decrease pain, To increase ROM, To improve muscle performance and motor function, To improve ability to perform ADL's, To increase tolerance to activity/condition/position, To improve ability of physical actions for home/community/work/leisure, To improve health of tissue, To decrease soft tissue restriction, To increase flexibility/ROM, To improve endurance, To improve balance, To prevent re-injury and To improve tolerance to ADL's Therapeutic Exercise to Include: Strength training, Postural training, Flexibilty training and Dynamic Lumbar Stabilization For the Purpose of:: To decrease pain, To increase ROM, To improve muscle performance and motor function, To improve ability to perform ADL's, To increase tolerance to activity/condition/position, To improve ability of physical actions for home/community/work/leisure, To improve health of tissue, To decrease soft tissue restriction, To increase flexibility/ROM and To improve endurance TENS: Yes IF ES: Yes Cryotherapy (ice pack, ice massage): Yes Thermo therapy (hot pack): Yes Ultrasound (thermal/non thermal): Yes For the Purpose of:: To decrease swelling/inflammation, To increase ROM, To improve nutrient delivery to tissue, To increase oxygenation perfusion, To improve health of tissue and To decrease soft tissue restriction Text: Thank you for the opportunity to evaluate your patient. For Medicare and Medicare HMO plans, please review the plan of care and approve it. It will need to be FAXED BACK to us at [phone] for Medicare purposes. For Medicare only, by signing this I certify the plan of care. Please let me know if there are questions or concerns regarding this plan of care. Physician Signature: Date:
--- NOTE | 2024-09-12 15:55 | HP.PT.NRP ---
Patient Information Patient Information: RAY BURGOS was seen in my office for initial evaluation on 06/01/24. The following Plan of Care was established for this patient: POC Established Initial Frequency: 2x /Week Initial Duration: 4 Weeks Anticipated Interventions Patient/Client Instruction: Educate patient on: Condition and Plan of Care For the Purpose of:: To decrease pain, To increase ROM, To improve muscle performance and motor function, To improve ability to perform ADL's, To increase tolerance to activity/condition/position, To improve ability of physical actions for home/community/work/leisure, To improve health of tissue, To decrease soft tissue restriction, To increase flexibility/ROM, To improve endurance, To improve balance, To prevent re-injury and To improve tolerance to ADL's Therapeutic Exercise to Include: Strength training, Postural training, Flexibilty training and Dynamic Lumbar Stabilization For the Purpose of:: To decrease pain, To increase ROM, To improve muscle performance and motor function, To improve ability to perform ADL's, To increase tolerance to activity/condition/position, To improve ability of physical actions for home/community/work/leisure, To improve health of tissue, To decrease soft tissue restriction, To increase flexibility/ROM and To improve endurance TENS: Yes IF ES: Yes Cryotherapy (ice pack, ice massage): Yes Thermo therapy (hot pack): Yes Ultrasound (thermal/non thermal): Yes For the Purpose of:: To decrease swelling/inflammation, To increase ROM, To improve nutrient delivery to tissue, To increase oxygenation perfusion, To improve health of tissue and To decrease soft tissue restriction Last Seen Last Seen: This patient was last seen in our office . Pertinent comments regarding their Physical therapy will appear below: Patient was seen for PT for lumbar pain ,needed MRI thus d/c RTD At this point I will be discontinuing this patient from physical therapy. I would be happy to see this patient again in the future if found appropriate by the physician. Thank you! Reece Martin, PT, Cert MDT, OCS Balance/Gait/Functional tests Balance/Special Test Scores Oswestry Low Back Score: 17
== END 2024-06-01 19:00 | disposition home or self-care (01) ==
LOC: PT 16:42
PROVIDERS: PCP Internal Medicine; Referring Provider Orthopaedic Surgery Orthopaedic Surgery of the Spine; Visit Provider Orthopaedic Surgery Orthopaedic Surgery of the Spine
DX: M54.16 Radiculopathy, lumbar region (principal)
CPT/HCPCS: 97110; 97162

== ENCOUNTER 2024-06-06 01:08 | Emergency (ER) | payer MEDICARE, OTHER, SELFPAY ==
[2023-11-12 09:37] VITALS: BMI 26.2
[2024-06-06 01:08] VITALS: BP 165/66; PULSE 60; RESP 18; TEMP 35.7; O2SAT 97; BMI 24.1
[2024-06-06] MEDS: Gabapentin 300 MG Capsule PO (01:54)
[2024-06-06] MEDS: Ketorolac 15 MG/ML Vial IM (01:56)
[2024-06-06] MEDS: Orphenadrine 60 MG/2 ML Ampul IM (01:56)
--- NOTE | 2024-06-06 02:52 | EDS_ITS ---
HPI History of Present Illness Chief Complaint: Other, Pain/Inj Informant: patient Narrative Narrative: Patient is a 69-year-old female with past medical history of hypothyroidism chronic kidney disease and GERD. She states that over the last 1 to 2 days she has noticed pain in the right lateral/posterior region of her neck. She states that there was no trauma or excessive activity. She denies any sick symptoms such as fevers chills sore throat cough or difficulty breathing or swallowing. She states that in the last few hours the pain has become more intense and is spasming. She states that she cannot sleep secondary to the pain and therefore comes in for evaluation. 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 Chronic neck and back pain Home Medications ?Medication ?Instructions ?Recorded ?Last Taken ?Type levothyroxine 75 mcg tablet 75 mcg PO DAILY THYROID 03/31/22 07/24/23 History atorvastatin 80 mg tablet 80 mg PO QHS #90 tabs 08/17/23 Unknown Rx clopidogrel 75 mg tablet 75 mg PO DAILY #90 tabs 08/17/23 Unknown Rx lisinopril 2.5 mg tablet 2.5 mg PO DAILY #90 tabs 08/17/23 Unknown Rx aspirin 81 mg tablet,delayed 81 mg PO DAILY 10/11/23 Unknown History release (Adult Aspirin Regimen) pantoprazole 40 mg tablet,delayed 40 mg PO BID 11/29/23 Unknown History release gabapentin 300 mg capsule 300 mg PO TID 10 days #30 caps 06/06/24 Unknown Rx methocarbamol 500 mg tablet 500 mg PO 4X/DAY PRN Muscle 06/06/24 Unknown Rx pain/spasm #40 tabs Allergy/AdvReac Type Severity Reaction Status Date / Time No Known Allergies Allergy Verified 06/06/24 01:08 Family History Mother Cancer Uterine CA Father Heart disease Hypertension CAD (coronary artery disease) Myocardial infarction Sudden cardiac Surgical History History of coronary artery stent placement (07/24/23) History of back surgery Social History household members: none Smoking Status: Never smoker alcohol intake: never substance use type: does not use caffeine: No what type of physical activity do you participate in: walking frequency: daily ROS ROS ED Constitutional Constitutional ED: Denies chills or fever(s) Eyes Eyes: Denies blurry vision or change in vision ENT ENT ED: Denies rhinorrhea or sore throat Cardiovascular Cardiovascular: Denies chest pain Respiratory/Chest Respiratory/Chest: Denies cough or dyspnea Gastrointestinal Gastrointestinal: Denies abdominal pain, diarrhea, nausea or vomiting Genitourinary Genitourinary ED: Denies dysuria Musculoskeletal Musculoskeletal: Reports neck pain Integumentary Denies Abrasions or rash Neurologic Neurologic: Denies headache(s), paresthesias or weakness Hematologic/Lymphatic Hematologic/Lymphatic: Denies easy bleeding or easy bruising EXAM Physical Exam Const Vital Signs: 06/06/24 01:08 06/06/24 01:08 06/06/24 03:01 Temperature 96.3 F L 98.3 F Temperature Source Temporal Pulse Rate 60 61 Respiratory Rate 18 18 Respiratory Effort Normal Non-Labored Respiratory Pattern Normal Blood Pressure 165/66 H 145/44 H Blood Pressure Mean 99 77 Pulse Ox 97 97 Oxygen Delivery Method Room Air Positive well nourished and well developed General Appearance ED: well developed; Negative for pallor HEENT Reports moist mucous membranes HEENT Narrative: No tongue or lip swelling no oral lesions no airway edema or compromise No secondary findings in the posterior pharynx to suggest infection Eyes PERRL and EOMs intact bilaterally Neck Neck Narrative: There is no bony deformity or step-off of the cervical spine no midline tenderness to palpation There is right-sided paracervical tenderness and spasm noted along the SCM muscle belly region. Pain worsens with sidebending and rotation No overlying soft tissue changes to suggest trauma or infection No nuchal rigidity or meningeal signs Resp normal respiratory effort and clear to auscultation bilaterally Cardio regular rate and regular rhythm Rate: other Other Details: No carotid bruit noted Extremity normal to inspection Neuro oriented x3, CN's II-XII intact bilaterally and no sensory deficits noted Sensorium / Orientation: alert Motor Exam: strength 5/5 throughout Psych Mood & Affect: anxious Skin no rashes or lesions noted and no wounds Skin Narrative: No overlying soft tissue changes to suggest trauma or infection General Skin Exam: Negative for jaundice or pallor MDM MDM MDM Narrative Medical decision making narrative: Patient presented to the ER hypertensive but otherwise with stable vitals. She denied any recent trauma causing her neck pain going against a cervical compression fracture or spondylolisthesis and this correlates with the fact she does not have midline tenderness. She is afebrile and denies any recent sick symptoms going against meningitis versus cellulitis versus abscess versus a posterior pharynx infection such as strep throat or peritonsillar abscess or retropharyngeal abscess. The pain is localized to the neck and does not radiate down the arm going against a cervical radiculopathy. At this time there is muscular tension and spasm along the paracervical muscle bellies on the right that worsen with motion indicating this is musculoskeletal in nature. Therefore do not feel there is need for imaging or laboratory studies. Patient was given Toradol Norflex and gabapentin. On reevaluation she is now lying down and able to sleep and has had improvement of her pain. With this her blood pressure has improved as well. 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, Hyperlipidemia, Chronic kidney disease Instructions: ED Neck Spasm, No Trauma Prescriptions: New gabapentin 300 mg capsule 300 mg PO TID 10 Days Qty: 30 0RF methocarbamol 500 mg tablet 500 mg PO 4X/DAY PRN (Reason: Muscle pain/spasm) Qty: 40 0RF No Action pantoprazole 40 mg tablet,delayed release (DR/EC) 40 mg PO BID levothyroxine 75 mcg tablet 75 mcg PO DAILY Rx Instructions: M,W,F Take a half of pill on T,T,S,S take a whole pill atorvastatin 80 mg tablet 80 mg PO QHS Qty: 90 3RF clopidogrel 75 mg tablet 75 mg PO DAILY Qty: 90 3RF lisinopril 2.5 mg tablet 2.5 mg PO DAILY Qty: 90 3RF aspirin [Adult Aspirin Regimen] 81 mg tablet,delayed release (DR/EC) 81 mg PO DAILY Stand Alone Forms: ED Work / School Excuse Primary Care Provider: Lakesha Solis Referrals: Lakesha Solis MD [Primary Care Provider] - Activity Restrictions/Additional Instructions: Your history and exam indicate you have a strained and spasming muscle in your neck. Continue to stretch and heat your neck to reduce pain and speed healing. Take Tylenol and/or Motrin for pain control but add the gabapentin and Robaxin to help with symptoms. Return to the ER should you have any further concerns Print Language: Armenian Disposition Disposition: Home, Self Care Discharge Date/Time: 06/06/24 03:04
[2024-06-06 03:01] VITALS: BP 145/44; PULSE 61; RESP 18; TEMP 36.8; O2SAT 97
== END 2024-06-06 03:04 | disposition home or self-care (01) ==
PROVIDERS: Emergency Provider Emergency Medicine; PCP Internal Medicine; Visit Provider Emergency Medicine
DX: S16.1XXA Strain of muscle, fascia and tendon at neck level, initial encounter (principal); N18.30 Chronic kidney disease, stage 3 unspecified; I25.10 Atherosclerotic heart disease of native coronary artery without angina pectoris; E78.5 Hyperlipidemia, unspecified; E03.9 Hypothyroidism, unspecified; E06.3 Autoimmune thyroiditis; K21.9 Gastro-esophageal reflux disease without esophagitis; M62.838 Other muscle spasm; X58.XXXA Exposure to other specified factors, initial encounter
CPT/HCPCS: 96372; 99282

== ENCOUNTER 2024-08-20 21:35 | Emergency (ER) | payer MEDICARE, OTHER, SELFPAY ==
[2023-11-12 09:37] VITALS: BMI 26.2
[2024-08-20 21:35] VITALS: BP 146/83; PULSE 103; RESP 16; TEMP 36.6; O2SAT 98
--- NOTE | 2024-08-20 21:45 | RAD_ITS ---
INDICATION: injury PAIN TO RIGHT FOOT AND ANKLE AFTER GETTING UP FROM CHAIR AND FALLING EXAMINATION/TECHNIQUE: X-RAY - RIGHT XR Foot Min 3 Views 3 VIEWS COMPARISON: No relevant prior comparison study available FINDINGS: BONES: No fracture demonstrated. JOINTS: No dislocation. SOFT TISSUES: Unremarkable. RAD/Foot min 3 Views IMPRESSION: No evidence of fracture. Electronically Signed: Lucía Tanner MD at 22:12 EST ,
--- NOTE | 2024-08-20 21:55 | RAD_ITS ---
INDICATION: injury PAIN TO RIGHT FOOT AND ANKLE AFTER GETTING UP FROM CHAIR AND FALLING EXAMINATION/TECHNIQUE: X-RAY - RIGHT XR Ankle Min 3 Views 3 VIEWS COMPARISON: No relevant prior comparison study available FINDINGS: BONES: No fracture demonstrated. JOINTS: No dislocation. SOFT TISSUES: Unremarkable. RAD/Ankle min 3 Views IMPRESSION: No evidence of fracture. Electronically Signed: Lucía Tanner MD at 22:10 EST ,
--- NOTE | 2024-08-20 22:21 | EX.ED.DYSGE1 ---
HPI History of Present Illness Chief Complaint: Lower Extremity Injury Narrative Narrative: Patient is a 69-year-old female with a past medical history of CKD stage III, hypothyroidism, GERD who presents to the emergency department with a chief complaint of right foot and ankle pain. Patient states that earlier today she was sitting on the couch reading a book when she noted that her legs were crossed and her right foot became numb and tingly. She states that she uncrossed her legs and attempt to stand up and when she did this because her right ankle to roll causing her to fall. States that she had increasing pain and was unable to bear weight which prompted her to come here for further evaluation management. Patient states that she did not taken thing for pain prior to arrival here. Patient states that she did not hit her head she did not pass out did not lose consciousness. Patient denies any blood thinning medications. 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 Chronic neck and back pain Home Medications ?Medication ?Instructions ?Recorded ?Last Taken ?Type levothyroxine 75 mcg tablet 75 mcg PO DAILY THYROID 03/31/22 07/24/23 History aspirin 81 mg tablet,delayed 81 mg PO DAILY 10/11/23 Unknown History release (Adult Aspirin Regimen) pantoprazole 40 mg tablet,delayed 40 mg PO BID 11/29/23 Unknown History release gabapentin 300 mg capsule 300 mg PO TID 10 days #30 caps 06/06/24 Unknown Rx methocarbamol 500 mg tablet 500 mg PO 4X/DAY PRN Muscle 06/06/24 Unknown Rx pain/spasm #40 tabs atorvastatin 80 mg tablet 80 mg PO QHS #90 tabs 08/15/24 Unknown Rx clopidogrel 75 mg tablet 75 mg PO DAILY #90 tabs 08/15/24 Unknown Rx lisinopril 2.5 mg tablet 2.5 mg PO DAILY #90 tabs 08/15/24 Unknown Rx Allergy/AdvReac Type Severity Reaction Status Date / Time No Known Allergies Allergy Verified 08/20/24 21:38 Family History Mother Cancer Uterine CA Father Heart disease Hypertension CAD (coronary artery disease) Myocardial infarction Sudden cardiac Surgical History History of coronary artery stent placement (07/24/23) History of back surgery Social History household members: none Smoking Status: Never smoker alcohol intake: never substance use type: does not use caffeine: No what type of physical activity do you participate in: walking frequency: daily ROS ROS ED ROS Narrative Constitutional: Denies headaches, fevers, chills, lightness, dizziness Neurological: Denies any numbness, weakness, tingling Musculoskeletal: Complains of right foot and ankle pain as noted above Skin: Complains of bruising to her right foot as noted above EXAM Physical Exam Narrative Exam Narrative: General: Patient lying in bed rest comfortably did not appear to be in acute distress Head: Atraumatic, normocephalic Eyes: PERRL bilateral, EOMI bilateral no conjunctival injection noted Neck: Soft, supple, trachea midline Cardiovascular: Regular rate and rhythm no murmurs gallops rubs noted Musculoskeletal: Patient has tenderness to palpation at the lateral aspect on the dorsal side of her right foot as well as the right lateral malleolus Extremities: DP pulses +2/4 in the bilateral extremities, +5/5 strength noted in the left lower extremity and +4/5 strength in the right lower extremity secondary to pain Neurological: Patient follow commands knew that she was at [facility] years 2023. Sensation grossly intact in the bilateral lower extremities when compared Skin: Patient has ecchymosis noted to the dorsal aspect of her right foot Const Vital Signs: 08/20/24 21:35 Temperature 98 F Temperature Source Oral Pulse Rate 103 H Respiratory Rate 16 Blood Pressure 146/83 H Blood Pressure Mean 104 Pulse Ox 98 Oxygen Delivery Method Room Air MDM MDM MDM Narrative Medical decision making narrative: Patient is a 69-year-old female who presented to the emerged part with a chief complaint of right foot and ankle pain after rolling her ankle earlier today. Patient will have a workup performed here on the differential diagnose includes but limited to ankle sprain, lateral malleolus fracture, medial malleolus fracture, distal tibial fracture, metatarsal fracture. Once workup is obtained reviewed she will be reevaluated. Patient was offered pain medication states that she does not need anything at this point time. Patient's x-ray of her right foot showed no acute fracture or dislocation this was reviewed by myself and by radiology. Patient's ankle x-ray was reviewed by myself and radiology which showed no acute fracture or dislocation. Did discuss the results with the patient she would like to go home at this point time. She states that she would like an Aircast and states that she has crutches at home therefore she does not need any. She was advised to ice, elevate, rotate Tylenol and ibuprofen [id number] for pain control. She was vies follow-up with her primary care physician in the outpatient setting. She is encouraged return with worsening symptoms or concerns. All question concerns answered she was discharged home in stable condition. Radiography Diagnostic Testing: Clinical Impression(s) from Imaging Studies Foot X-Ray 08/20/24 21:45 IMPRESSION: No evidence of fracture. Electronically Signed: Lucía Tanner MD at 22:12 EST Reading Location ID and State: [facility] / [place] Tel , Service support , Ankle X-Ray 08/20/24 21:55 IMPRESSION: No evidence of fracture. Electronically Signed: Lucía Tanner MD at 22:10 EST , Discharge Plan Triage Chief Complaint: Lower Extremity Injury ED Provider: Son Smith Dx/Rx/DC Orders Clinical Impression: Acute right ankle pain Prescriptions: No Action pantoprazole 40 mg tablet,delayed release (DR/EC) 40 mg PO BID levothyroxine 75 mcg tablet 75 mcg PO DAILY Rx Instructions: M,W,F Take a half of pill on T,T,S,S take a whole pill gabapentin 300 mg capsule 300 mg PO TID 10 Days Qty: 30 0RF methocarbamol 500 mg tablet 500 mg PO 4X/DAY PRN (Reason: Muscle pain/spasm) Qty: 40 0RF aspirin [Adult Aspirin Regimen] 81 mg tablet,delayed release (DR/EC) 81 mg PO DAILY lisinopril 2.5 mg tablet 2.5 mg PO DAILY Qty: 90 3RF clopidogrel 75 mg tablet 75 mg PO DAILY Qty: 90 3RF atorvastatin 80 mg tablet 80 mg PO QHS Qty: 90 3RF Stand Alone Forms: Work / School Excuse Primary Care Provider: Lakesha Solis Referrals: Lakesha Solis MD [Primary Care Provider] - Bayron Pruitt DO [Med Staff - Active Staff] - Activity Restrictions/Additional Instructions: Follow-up with your primary care physician outpatient setting. Ice, elevate, rotate Tylenol and ibuprofen [id number]. Return with worsening symptoms or any other concerns. Print Language: Macedonian Disposition Disposition: Home, Self Care
== END 2024-08-20 22:42 | disposition home or self-care (01) ==
PROVIDERS: Emergency Provider Emergency Medicine; PCP Internal Medicine; Visit Provider Emergency Medicine
DX: M25.571 Pain in right ankle and joints of right foot (principal); N18.30 Chronic kidney disease, stage 3 unspecified; W18.30XA Fall on same level, unspecified, initial encounter; I25.10 Atherosclerotic heart disease of native coronary artery without angina pectoris; E03.9 Hypothyroidism, unspecified; K21.9 Gastro-esophageal reflux disease without esophagitis; I25.2 Old myocardial infarction; Z79.82 Long term (current) use of aspirin; Z79.02 Long term (current) use of antithrombotics/antiplatelets; Z79.890 Hormone replacement therapy; Z79.899 Other long term (current) drug therapy
CPT/HCPCS: 73610; 73630; 99283

== ENCOUNTER 2025-04-10 17:28 | Emergency (ER) | payer OTHER, MEDICARE, SELFPAY ==
[2023-11-12 09:37] VITALS: BMI 26.2
[2025-04-10 17:29] VITALS: BP 140/72; PULSE 61; RESP 16; TEMP 36.6; O2SAT 98; BMI 27.4
[2025-04-10 17:36] VITALS: O2SAT 95
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
[2025-04-10 18:48] VITALS: BP 134/78; PULSE 71; RESP 16; TEMP 36.3; O2SAT 100
== END 2025-04-10 18:51 | disposition home or self-care (01) ==
LOC: ED 18:13
PROVIDERS: Emergency Provider Emergency Medicine; PCP Internal Medicine; Visit Provider Emergency Medicine
DX: S13.4XXA Sprain of ligaments of cervical spine, initial encounter (principal); N18.30 Chronic kidney disease, stage 3 unspecified; I25.10 Atherosclerotic heart disease of native coronary artery without angina pectoris; E03.9 Hypothyroidism, unspecified; E06.3 Autoimmune thyroiditis; Y99.0 Civilian activity done for income or pay; Z79.02 Long term (current) use of antithrombotics/antiplatelets; Z79.82 Long term (current) use of aspirin; Z79.890 Hormone replacement therapy; Z79.899 Other long term (current) drug therapy; I25.2 Old myocardial infarction; Z95.5 Presence of coronary angioplasty implant and graft; G89.29 Other chronic pain
CPT/HCPCS: 72040; 99282

== ENCOUNTER 2025-05-31 17:00 | Outpatient (RCR) | payer OTHER, MEDICARE, SELFPAY ==
[2023-11-12 09:37] VITALS: BMI 26.2
[2025-05-09 16:22] VITALS: BMI 26.2
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
== END 2025-05-31 19:00 | disposition home or self-care (01) ==
LOC: PT 17:00
PROVIDERS: PCP Internal Medicine; Referring Provider Physician Assistant; Visit Provider Physician Assistant
DX: S16.1XXA Strain of muscle, fascia and tendon at neck level, initial encounter (principal); S46.812A Strain of other muscles, fascia and tendons at shoulder and upper arm level, left arm, initial encounter; S46.811A Strain of other muscles, fascia and tendons at shoulder and upper arm level, right arm, initial encounter
CPT/HCPCS: 97014; 97110; 97140; 97162; 97530; G0283